=== PATIENT | male | born 1960 | race Caucasian/White ===

== ENCOUNTER 2021-05-16 14:06 | Outpatient (CLI) | payer MEDICAID, SELFPAY ==
--- NOTE | 2021-05-16 14:14 | XR_ITS ---
WS: [id number] LEFT ANKLE: 3 VIEW(S) TECHNIQUE: AP, oblique(s) and lateral. HISTORY: ANKLE JOINT PAIN, LEFT COMPARISON: None available. Normal anatomic alignment with no fracture or dislocation. No joint effusion or widening of the ankle mortise. Very minimal narrowing of the joint space. Moderate amount of soft tissue edema laterally. Moderate peripheral arterial calcification. XR/XR ankle LT min 3V* [id number] IMPRESSION: 1. Moderate soft tissue edema laterally. No fracture identified. 2. Peripheral arterial calcification.
== END 2021-05-16 14:07 | disposition home or self-care (01) ==
PROVIDERS: PCP Nurse Practitioner Family; Visit Provider Nurse Practitioner Family
DX: M25.572 Pain in left ankle and joints of left foot (principal); R60.0 Localized edema
CPT/HCPCS: 73610

== ENCOUNTER 2021-12-11 15:38 | Outpatient (CLI) | payer MEDICAID, SELFPAY ==
--- NOTE | 2021-12-11 15:45 | XR_ITS ---
WS: [id number] XR ankle RT min 3V* [id number] REASON FOR EXAM: PAIN RT ANKLE JOINT FINDINGS: No fracture or focal bone lesion. Mild narrowing of the ankle mortise. Ankle mortise of the right ankle appears similar to the mortise of the left ankle. No soft tissue abnormality. XR/XR ankle RT min 3V* [id number] IMPRESSION: No acute abnormality.
== END 2021-12-11 15:39 | disposition home or self-care (01) ==
LOC: RAD 15:42
PROVIDERS: PCP Nurse Practitioner Family; Visit Provider Family Medicine
DX: M25.571 Pain in right ankle and joints of right foot (principal)
CPT/HCPCS: 73610

== ENCOUNTER 2022-03-24 13:50 | Outpatient (CLI) | payer MEDICAID, SELFPAY ==
[2022-03-24 15:29] LABS: Basophils # 0.1 10^3/uL (0.0-0.1); Basophils % 1.2 %; Eosinophils # 0.1 10^3/uL (0.0-0.8); Eosinophils % 2.3 %; Hematocrit 43.4 % (42.0-52.0); Hemoglobin 14.7 g/dL (11.7-16.6); Lymphocytes # 0.6 10^3/uL (0.8-4.8); Lymphocytes % 12.4 %; Mean Corpuscular HGB Conc 33.9 g/dL (30.0-36.0); Mean Corpuscular Hemoglobin 31.1 pg (28.0-34.0); Mean Corpuscular Volume 91.8 fl (80-94); Mean Platelet Volume 10.3 fL (7.4-10.4); Monocytes # 0.7 10^3/uL (0.2-0.9); Neutrophils # 3.66 10^3/uL (1.8-7.7); Neutrophils % 70.7 %; Nucleated Red Blood Cells % 0 %; Platelet Count 104 10^3/cmm (130-400); Red Blood Count 4.73 10^6/uL (4.1-5.3); Red Cell Distribution Width 13.2 % (12.1-15.1); White Blood Count 5.2 10^3/uL (4.0-10.0)
[2022-03-24 15:32] LABS: Erythrocyte Sedimentation Rate 1 mm/hr (0-10)
[2022-03-24 15:34] LABS: LAB Peripheral Smear Sent for Review
[2022-03-24 16:01] LABS: Alanine Aminotransferase 19 U/L (0-41); Albumin Level 4.2 g/dL (3.5-5.2); Alkaline Phosphatase 112 IU/L (40-130); Anion Gap 13.6 (5-19); Aspartate Amino Transferase 26 U/L (0-40); Blood Urea Nitrogen 9 mg/dL (8-23); Calcium 8.7 mg/dL (8.5-10.5); Carbon Dioxide 27 mmol/L (22-29); Chloride 102 mmol/L (98-107); Glucose 93 mg/dL (65-115); Lactate Dehydrogenase 177 U/L (135-225); Osmolality Calculated 286 mOsm/kg (285-295); Potassium 3.6 mmol/L (3.5-5.1); Sodium 139 mmol/L (136-145); Total Bilirubin 0.5 mg/dL (0.15-1.2); Total Protein 7.2 g/dL (6.6-8.7)
[2022-03-24 16:12] LABS: Vitamin B12 513 pg/mL (232-1245)
--- NOTE | 2022-03-24 18:55 | ONC CON_ITS ---
Dr. Arguello New Patient Note Patient: Trino Maddox Unit #: [id number]: 1960 Dicatated By: Ej Arguello M.D.Date of Visit: Mar 24, 2022 Onc MED New Patient/Consult Referring Physician: Lamin Knott N.P. Chief Complaint: Thrombocytopenia. History of Present Illness: This is a 61 year-old man with mild thrombocytopenia and leukopenia. I had seen him initially in May 2016 in regard to a low platelet count. His evaluation included CBC showing hemoglobin 13.7 g with hematocrit 41%. The red cell indices were normal. The white blood cell count was 5000. The platelet count was just borderline low at 140,000. The serum iron was low at 58 mcg/dL with transferrin saturation 16%. Ferritin was normal at 235 ng/mL. B12 was low normal range at 295 pg/mL, and the LDH was normal at 172 U/L. TSH was slightly elevated at 5.490 mIU/mL. Given those findings, I had just recommended observation/expectant management. As of his follow-up visit in June 2017 his blood counts and clinical status had remained stable, and at that point I had recommended that he just continue his regular follow-up with Roh[facility] Gresh[facility]. His other medical illnesses include hypertension, hyperlipidemia, and coronary artery disease. He has had previous myocardial infarction, and he has undergone angioplasty/stent placement on 2 occasions. He has a history of atrial fibrillation. He also has COPD, degenerative arthritis/degenerative disease of the spine and peripheral neuropathy. He had previously smoked for 10 years, up to 3-4 packs of cigarettes daily, but he quit smoking around 1979. He had heavy alcohol use in the past, for a period of about for 5 years. He quit drinking about 1989. INTERIM HISTORY: He had follow-up laboratory studies with Rohith Gresham on 01/13/2022. His CBC at that time showed normal hemoglobin at 13.6 g with hematocrit 39.7%. The red cell indices were normal. The white blood cell count was slightly low at 3900 and the platelet count was also mildly decreased at 103,000. The the white blood cell differential included 63% neutrophils, 19% lymphocytes, 15% monocytes, 2% eosinophils, and 1% basophils. Comprehensive metabolic profile showed borderline renal function with BUN 9 and creatinine 1.36 mg/dL. The bilirubin and liver enzymes were normal. TSH was normal 2.480 ???IU/mL. A repeat CBC on 02/13/2022 showed similar findings with hemoglobin 15.1 g, white blood cell count 3500, and platelet count 101,000. He is seen now for a followup visit. He complains that he feels tired a lot, but he is able to do some light work. ECOG score is 1. His appetite has been okay. He thinks his weight has recently been down a little. He has not had fever. He does have some sweating at night, but that is chronic. He has nonproductive cough. He is short of breath if he overdoes it. He occasionally has chest pain. He has no GI or complaints. He says he has a lot of back problems. He also reports having pain in his right foot, in his knees, and in his hands. He does not complain of headache. He has occasional lightheadedness. He has had some numbness/tingling in his hands and feet. He reports having easy bruising. He has had no other bleeding manifestations. Past Medical History: His medical history consists of chronic obstructive pulmonary disease, coronary artery disease, degenerative arthritis, history of atrial fibrillation, hyperlipidemia, hypertension, and peripheral neuropathy. Past Surgical History: His surgical/procedural history includes coronary angioplasty/stent placement on 2 occasions, most recently in 2016. Medications: Aspirin 1 Tablet (of 81 mg) Oral daily, Fenofibrate 1 Capsule (of 134 mg) Oral daily, Gabapentin 1 Tablet (of 100 mg) Capsule Oral t.i.d. PRN, Isosorbide Mononitrate ER 1 Tablet (of 60 mg) Tablet SR 24 HR Oral daily, Levothyroxine Sodium 1 Tablet (of 50 mcg) Oral daily, Lisinopril 1 Tablet (of 40 mg) Oral daily, Metoprolol Tartrate 1 (25 mg) Tablet Oral b.i.d., Naproxen 1 Tablet (of 500 mg) Tablet, enteric coated Oral b.i.d., Nitroglycerin Tablet, sublingual Sublingual PRN, Zonisamide 4 Capsule (of 100 mg) Oral daily Allergies: No Known Allergies. Social History: Mr. Maddox is and he is a disabled. He has a history of smoking 3-4 packs of cigarettes daily for a period of 10 years. He quit smoking [id number]. He does chew a can of smokeless tobacco every 2-3 weeks. He has had heavy alcohol use in the past for a period of 4 or 5 years. He quit around 1989. He has since then had just very occasional alcohol use. Family History: His father reportedly of old age. His mother apparently after heart and lung problems. He has some half-siblings, but he doesn't know much about them. He has no full siblings. Review Of Symptoms: Constitutional - He complains that he is tired a lot. He is able to do light work. His appetite has been okay. He thinks his weight may have gone down a little bit recently. He has not had fever. He does have some sweating at night, but that is chronic. ECOG score is 1, Eyes - No change in vision, ENMT - He has hearing loss. No sinus congestion/drainage. No mouth sores. No sore throat or difficulty swallowing, Hematologic/Lymphatic - He has easy bruising, Respiratory - He has shortness of breath if he overdoes it. He has nonproductive cough. No pleuritic pain or hemoptysis, Cardiovascular - He occasionally has chest pain. No palpitations, Gastrointestinal - No nausea or vomiting. No heartburn or acid reflux. No diarrhea or constipation. No blood in the stool or black stools, Genitourinary (M) - No dysuria or hematuria. No urinary frequency. No urgency or incontinence, Musculoskeletal - He has chronic back pain. He also reports having pain in his right foot, and his knees, and in his hands, Integumentary - He sometimes has itching in his hands, Neurologic - No headache. He has occasional lightheadedness. He has had numbness/tingling in his hands and feet. No other focal neurologic symptoms, Psychiatric - No anxiety or depression. He has trouble going to sleep. Vital Signs: Performed on Mar 24, 2022 15:28: 7, 6, 30.38 (HIGH), 1.95 sq.m, 66.00 in, 99 %, 80 /min, 16 /min, 127/83 mm(hg), 98.2 F (LOW), and 188.2 lbs (LOW). Physical Examination: Constitutional - He has limited mobility. He does not appear acutely ill, Eyes - Sclerae nonicteric. Conjunctivae clear, ENMT - No lesions noted in the oral cavity, Neck - No mass or thyromegaly, Hematologic/Lymphatic - No cervical, clavicular, or axillary adenopathy, Respiratory - Lungs sound clear with good air movement bilaterally, Cardiovascular - Heart rhythm is slightly irregular. There is no murmur, gallop, or rub noted, Abdomen - Soft and non-tender. Liver and spleen are not enlarged. There is no abdominal mass or ascites noted and there is no inguinal adenopathy, Back/Spine - No spine or CVA tenderness noted, Extremities - No edema. Dorsalis pedis pulses are palpable bilaterally. There are a few scattered purpuric lesions, Integumentary - There is some mild eczematous appearing skin eruption in the palms. There are no suspicious skin lesions noted, Neurologic - No focal neurologic deficits noted. Problem List: 1. Mild thrombocytopenia and leukopenia. 2. Hypertension. 3. Hyperlipidemia. 4. Coronary artery disease with previous myocardial infarction. 5. Atrial fibrillation. 6. COPD. 7. Degenerative arthritis/degenerative disease of the spine. 8. History of peripheral neuropathy. Problems Addressed with this Encounter and Plan: 1. Patient with mild thrombocytopenia and leukopenia. Etiology is uncertain. In the absence of any evidence of liver disease/hypersplenism, the main concern would be the possibility of a myelodysplastic syndrome. However, in reviewing his records, the onset dates back to around 2013, so that he does appear to be showing a very benign clinical course. At this point I do want to repeat his CBC along with comprehensive metabolic profile, LDH level, B12 level, sed rate, and JENNIFER screen, and I also will review the blood smear. Unless there is a significant change, I will just plan to continue expectant management. Signed By: Ej Arguello M.D. <<Signature on File>>
[2022-03-25 17:43] LABS: Anti-Nuclear Antibody Screen NEGATIVE (NEGATIVE)
== END 2022-03-24 13:51 | disposition home or self-care (01) ==
LOC: ONCMED 13:55
PROVIDERS: PCP Nurse Practitioner Family; Visit Provider Internal Medicine Medical Oncology
DX: D69.6 Thrombocytopenia, unspecified (principal); D72.819 Decreased white blood cell count, unspecified; I10 Essential (primary) hypertension; E78.5 Hyperlipidemia, unspecified; I25.10 Atherosclerotic heart disease of native coronary artery without angina pectoris; I25.2 Old myocardial infarction; I48.91 Unspecified atrial fibrillation; Z86.69 Personal history of other diseases of the nervous system and sense organs; Z79.899 Other long term (current) drug therapy
CPT/HCPCS: 36415; 80053; 82607; 83615; 85025; 85651; 86038; 99204

== ENCOUNTER 2022-11-26 11:31 | Outpatient (CLI) | payer MEDICAID, SELFPAY ==
--- NOTE | 2022-11-26 11:41 | XR_ITS ---
WS: [id number] Lumbar spine, 5 views including both obliques, 11/26/2022 Clinical Data: LUMBAGO Comparison: None. Findings: No compression fractures or subluxation is seen. There is disc narrowing at L1-L2, L3-L4, L4-L5 and L 5-S1. There is anterior osteophyte formation of the lower thoracic and all the lumbar vertebral lawson s. The oblique films show no spondylolysis. The transverse processes and SI joints are normal. There is a dextroscoliosis of the lumbar spine XR/XR lumbar spine min 4V [id number] Impression: 1. Multilevel degenerative disc narrowing and osteophyte formation. 2. Dextroscoliosis. 3. No spondylolysis on the oblique films.
== END 2022-11-26 11:32 | disposition home or self-care (01) ==
PROVIDERS: PCP Nurse Practitioner Family; Visit Provider Nurse Practitioner Family
DX: M54.50 Low back pain, unspecified (principal); M25.78 Osteophyte, vertebrae; M41.86 Other forms of scoliosis, lumbar region
CPT/HCPCS: 72110

== ENCOUNTER → 2023-03-08 12:58 | Outpatient (BNVA) | payer MEDICAID, SELFPAY | PROVIDERS: PCP Nurse Practitioner Family; Visit Provider Internal Medicine | DX: I25.10 Atherosclerotic heart disease of native coronary artery without angina pectoris (principal); E78.5 Hyperlipidemia, unspecified; J44.9 Chronic obstructive pulmonary disease, unspecified; I10 Essential (primary) hypertension; F17.200 Nicotine dependence, unspecified, uncomplicated; I25.2 Old myocardial infarction; Z79.82 Long term (current) use of aspirin | CPT/HCPCS: 99213 ==

== ENCOUNTER 2023-04-13 14:24 | Outpatient (CLI) | payer MEDICAID, SELFPAY ==
--- NOTE | 2023-04-13 14:48 | XRR_ITS ---
PROCEDURE INFORMATION: Exam: XR Left Elbow Exam date and time: 04/13/2023 2:56 PM Age: 62 years old Clinical indication: Injury or trauma; Other: Spider bite; Wound; Elbow; Left; Additional info: Left arm cellulitis TECHNIQUE: Imaging protocol: Radiologic exam of the left elbow. Views: 3 or more views. COMPARISON: No relevant prior studies available. FINDINGS: Bones/joints: Normal. Soft tissues: Normal. XR/XR elbow LT min 3V* [id number] IMPRESSION: No acute findings.
== END 2023-04-13 14:25 | disposition home or self-care (01) ==
LOC: LAB 14:31
PROVIDERS: PCP Nurse Practitioner Family; Visit Provider Nurse Practitioner Family
DX: L03.114 Cellulitis of left upper limb (principal)
CPT/HCPCS: 73080

== ENCOUNTER → 2024-01-18 13:56 | Outpatient (BNVA) | payer MEDICAID, SELFPAY | PROVIDERS: PCP Nurse Practitioner Family; Visit Provider Internal Medicine | DX: I25.10 Atherosclerotic heart disease of native coronary artery without angina pectoris (principal); E78.5 Hyperlipidemia, unspecified; J44.9 Chronic obstructive pulmonary disease, unspecified; I10 Essential (primary) hypertension; F17.200 Nicotine dependence, unspecified, uncomplicated | CPT/HCPCS: 99214 ==

== ENCOUNTER 2024-01-26 10:49 | Outpatient (CLI) | payer MEDICAID, SELFPAY ==
--- NOTE | 2024-01-26 10:00 | USCV_ITS ---
Trino Maddox Age: 63 Gender: M : 1960 Exam Date: 01/26/2024 11:02 Ordering Phys: Maged Sanchez M.D ([email or web address]) Technologist: ANTWON Exam Location: [facility] [place] Indication: SHORTNESS OF BREATH BP: 110 / 60 HR: 80 Rhythm: Sinus Technical Quality: Adequate MEASUREMENTS (Male / Female) Normal Values 2D ECHO LV Diastolic Diameter PLAX 5.1 cm 4.2 - 5.9 / 3.9 - 5.3 cm IVS Diastolic Thickness 1.2 cm 0.6 - 1.0 / 0.6 - 0.9 cm IVS Systolic Thickness 1.5 cm LVPW Diastolic Thickness 1.7 cm 0.6 - 1.0 / 0.6 - 0.9 cm LVPW Systolic Thickness 2.3 cm LVOT Diameter 2.0 cm LV Ejection Fraction 2D Teich 53.2 % LV Ejection Fraction MOD 2C 48.8 % LV Ejection Fraction 2C AL 0.0 % LA Diameter 4.3 cm RA Systolic Volume 4C AL 26.6 ml RA Systolic Volume 4C MOD 26.4 ml Aorta at Sinotubular Diameter 2.7 cm M-MODE LA Ao Ratio MM 1.3 AV Cusp Separation MM 1.3 cm DOPPLER AV Peak Velocity 157.0 cm/s LVOT Peak Velocity 110.0 cm/s AV Area Cont Eq vti 2.3 cm squared AV Area Cont Eq pk 2.2 cm squared MV Peak Velocity 450.0 cm/s MV Area PHT 4.5 cm squared Mitral E to A Ratio 107.0 TR Peak Velocity 189.0 cm/s TR Peak Gradient 14.3 mmHg TR Mean Velocity 150.0 cm/s TR Mean Gradient 9.6 mmHg TR Velocity Time Integral 53.4 cm TV Peak E Velocity 55.0 cm/s Right Atrial Pressure 3.0 mmHg Pulmonary Artery Systolic Pressu 17.3 mmHg PV Peak Velocity 108.0 cm/s RV Ejection Time 0.3 s FINDINGS Left Ventricle Left ventricle is normal in size. LV systolic function is mildly reduced with EF of 40-45%. Mild global hypokinesis seen. Right Ventricle Normal in size and function Right Atrium Normal in size Left Atrium Dilated Mitral Valve Structurally normal mitral valve. Mild to moderate mitral regurgitation. Aortic Valve Structurally normal aortic valve. No significant stenosis or regurgitation. Tricuspid Valve Mild tricuspid regurgitation. Insufficient TR jet to calculate RVSP. Pulmonic Valve Not well visualized Pericardium Normal Aorta Normal in size IVC Appears to be normal CONCLUSIONS LV systolic function is mildly reduced with EF of 40-45%. Mild global hypokinesis seen Left atrial dilation Mild to moderate mitral regurgitation Mild tricuspid regurgitation Compared to prior echocardiogram from 2017, LV systolic function has decreased further and EF is 40-45% Maged Sanchez MD (Electronically Signed) Final Date: 01 February 2024 12:27 S
== END 2024-01-26 10:50 | disposition home or self-care (01) ==
LOC: RAD 10:50
PROVIDERS: PCP Nurse Practitioner Family; Visit Provider Internal Medicine
DX: I08.1 Rheumatic disorders of both mitral and tricuspid valves (principal); R06.02 Shortness of breath
CPT/HCPCS: 93306

== ENCOUNTER 2024-03-07 07:40 | Inpatient (IN) | payer MEDICAID, SELFPAY ==
[2024-03-07] MEDS: diphenhydrAMINE 50 mg Capsule PO (06:25)
[2024-03-07] MEDS: aspirin 325 mg Tablet PO (06:25)
[2024-03-07 06:37] LABS: Basophils % 0.7 %; Eosinophils # 0.1 10^3/uL (0.0-0.8); Eosinophils % 2.9 %; Hematocrit 31.5 % (37-53); Lymphocytes # 0.4 10^3/uL (0.8-4.8); Lymphocytes % 15.9 %; Mean Corpuscular Hemoglobin 31.2 pg (27-33); Mean Corpuscular Volume 94.6 fl (82-101); Mean Platelet Volume 10.4 fL (7.4-10.4); Monocytes # 0.3 10^3/uL (0.2-0.9); Monocytes % 11.9 %; Neutrophils % 68.6 %; Nucleated Red Blood Cells % 0 %; Platelet Count 86 10^3/cmm (157-399); Red Blood Count 3.33 10^6/uL (3.85-5.65); Red Cell Distribution Width 13.5 % (12.1-15.1); White Blood Count 2.77 10^3/uL (3.29-11.43)
[2024-03-07 06:53] VITALS: BP 149/98; PULSE 105; RESP 16; TEMP 37.1; O2SAT 100; BMI 29.4
[2024-03-07 06:54] LABS: Anion Gap 12.5 (5-19); Blood Urea Nitrogen 10 mg/dL (8-23); Calcium 8.6 mg/dL (8.5-10.5); Carbon Dioxide 26 mmol/L (22-29); Chloride 104 mmol/L (98-107); Glomerular Filtration Rate 67.6 mL/min (90-130); Glucose 87 mg/dL (65-115); Osmolality Calculated 286 mOsm/kg (285-295); Potassium 3.5 mmol/L (3.5-5.1); Sodium 139 mmol/L (136-145)
[2024-03-07] MEDS: FUROsemide 10 mg/mL SDV 10mL 60 MG IVP (07:47)
--- NOTE | 2024-03-07 08:10 | SUR.PREOP ---
Transfer to CSU Patient to be a direst admit for diuresis. Will postpone R & LHC. Report called to REJI Haley. Patient then transferred via wheelchair to room 101 at 0800. See MAR for Lasix administration. Brother at bedside.
--- NOTE | 2024-03-07 08:17 | XR_ITS ---
WS: [id number] PORTABLE CHEST HISTORY: Congestive heart failure COMPARISON: 09/15/2019 Poor inspiratory effort. No pneumonia. Normal vasculature. No pleural effusion or pneumothorax. Cardiac size: Normal. Mediastinum/Aorta: Normal mediastinum. No osseous abnormality seen. IMPRESSION: Limited evaluation of the lungs due to poor inspiration and overlying lead wires. No abnormality iden tified.
--- NOTE | 2024-03-07 08:23 | ECG_ITS ---
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 Measurements Intervals [place] Rate: 90 P: 0 HI: 0 QRS: -30 QRSD: 114 T: 139 QT: 358 QTc: 439 Interpretive Statements ATRIAL FIBRILLATION POSSIBLE ANTERIOR MYOCARDIAL INFARCTION , PROBABLY OLD [30 ms Q WAVE IN V3/V4, OR R < 0.2 mV IN V4] INFERIOR MYOCARDIAL INFARCTION , PROBABLY OLD [40+ ms Q WAVE AND/OR ST/T ABNORMALITY IN II/aVF] Compared to ECG 09/15/2019 07:55:33 Sinus bradycardia no longer present Myocardial infarct finding still present Electronically Signed On 03-07-2024 21:26:27 CDT by Alejandro Gibson M.D. [id number]
--- NOTE | 2024-03-07 08:26 | P.HP_ITS ---
Providers/Chief Complaint 2 Admitting Physician: Maged Sanchez M.D Primary Care Provider: Ira Noyola DO Chief Complaint: I50.1 History of Present Illness Trino Maddox is a 63 year old male with past medical history of coronary artery disease, recent decrease in LV systolic function presented to hospital for outpatient right and left heart cath. However on exam before the procedure, he was found to be volume overloaded. Has abdominal distention and significant lower extremity edema. He is also having worsening dyspnea on exertion and resting shortness of breath. Occasional chest pressure. After discussion with patient, we decided to admit the patient for IV diuresis. Review of Systems 2 Const: Denies: fatigue Card: Reports: chest pain, swelling of feet/ankles, dyspnea on exertion and orthopnea; Denies: palpitations, irregular heart rhythm, edema, lightheadedness, syncope, pre-syncope or leg pain with exertion Resp: Reports: dyspnea and non-productive cough; Denies: productive cough Musc: Reports: neck pain and back pain (lower) Neuro: Reports: headache(s); Denies: dizziness Psych: Denies: anxiety, depression, suicidal ideation or homicidal ideation Gerald/Lymph: Reports: easy bruising and easy bleeding Medications/Allergies Home Medications Medication Instructions Recorded Confirmed Last Taken Type aspirin 81 mg tablet,delayed 81 mg PO DAILY 01/22/20 03/07/24 03/06/24 09:00 History release (Aspir-) fenofibrate micronized 134 mg 134 mg PO DAILY 01/22/20 03/07/24 03/06/24 09:00 History capsule gabapentin 100 mg capsule 100 mg PO TID 01/22/20 03/07/24 Unknown History isosorbide mononitrate 60 mg 60 mg PO DAILY 01/22/20 03/07/24 03/06/24 09:00 History tablet,extended release 24 hr levothyroxine 25 mcg capsule 25 mcg PO DAILY 01/22/20 03/07/24 03/06/24 09:00 History lisinopril 40 mg tablet 40 mg PO DAILY 01/22/20 03/07/24 03/06/24 09:00 History simvastatin 40 mg tablet 40 mg PO DAILY 01/22/20 03/07/24 03/06/24 21:00 History zonisamide 100 mg capsule 400 mg PO DAILY 01/22/20 03/07/24 03/06/24 09:00 History nitroglycerin 0.4 mg sublingual 0.4 mg sublingual Q5M PRN chest 07/24/20 03/07/24 Unknown Rx tablet (Nitrostat) pain #60 tabs metoprolol tartrate 25 mg tablet 25 mg PO DAILY 03/08/23 03/07/24 03/06/24 09:00 History furosemide 20 mg tablet (Lasix) 20 mg PO DAILY 01/19/24 03/07/24 03/06/24 09:00 History potassium chloride 10 mEq 10 meq PO DAILY 01/19/24 03/07/24 03/06/24 09:00 History tablet,extended release Allergies Allergy/AdvReac Type Severity Reaction Status Date / Time No Known Allergies Allergy Verified 01/31/24 12:14 PFSH Acute 2 PFSH: Medical History (Updated 03/08/24 @ 06:37 by Maged Sanchez M.D) HTN (hypertension) ASHD (arteriosclerotic heart disease) Myocardial infarction Dyslipidemia COPD (chronic obstructive pulmonary disease) Surgical History S/P angioplasty with stent Family History Mother Hypertension Other CAD (coronary artery disease) Social History Smoking and tobacco/nicotine status: current some day tobacco/nicotine user Alcohol intake: current Alcohol intake frequency: holidays/special occasions only Alcohol type: beer Household members: significant other Marital status: Life Partner service: No Current occupational status: disabled Vitals/I&O/Wt Last Vital Signs Temp 98.7 F 03/07/24 06:53 Pulse 105 H 03/07/24 06:53 Resp 16 03/07/24 06:53 BP 149/98 03/07/24 06:53 O2 Del Method Room Air 03/07/24 06:53 Weight last 48 hrs Weight 177 lb Physical Exam 2 Narrative: GENERAL: Patient is alert, awake and oriented x3. [] NECK: No jugular vein distension. [] HEENT: No cyanosis. No icterus. No pallor. [] HEART: Regular S1 and S2. No murmur, rub or gallop. [] LUNGS: Clear to auscultate bilaterally. [] CENTRAL NERVOUS SYSTEM: Grossly nonfocal. [] EXTREMITIES: Lower extremities with 1+ edema bilaterally. Data 03/08/24 03:09 03/08/24 03:09 A&P Assessment and plan (1) Acute congestive heart failure: (2) Dyslipidemia: (3) ASHD (arteriosclerotic heart disease): (4) HTN (hypertension): Qualifiers: Hypertension type: primary hypertension Qualified Code(s): I10 - Essential (primary) hypertension (5) COPD (chronic obstructive pulmonary disease): Plan Patient is acute CHF exacerbation. We will aggressively diurese with 80 IV Lasix 3 times daily and metolazone 5mg daily. Close I and Os. Monitor renal function Home antihypertensive medications. Continue aspirin Ordering chest X ray NT pro BNP elevated at 1938 Plan for right and left heart cath with possible PCI in 1-2 days based on response to diuretic therapy. Attestations 2 Medical Necessity Statement*: Care expected to cross 2 midnights. Patient admitted for acute exacerbation of congestive heart failure. Will IV diuresis and then right and left heart cath once volume status improves. Coding Level of Care Code Acute Code for [facility] Diagnoses Acute congestive heart failure I50.9 Dyslipidemia E78.5 ASHD (arteriosclerotic heart disease) I25.10 Primary hypertension I10 Hypertension type: primary hypertension COPD (chronic obstructive pulmonary disease) J44.9
[2024-03-07] MEDS: potassium chloride ER 20 mEq Tablet 40 MEQ PO ×2 (08:45→16:37)
[2024-03-07] MEDS: metOLazone 5 MG Tablet PO (08:45)
[2024-03-07 08:51] LABS: NT Pro B Type Natriuretic Pept 1938 pg/mL (0-125)
[2024-03-07] MEDS: metoprolol tartrate 25 mg Tablet PO ×2 (08:54→20:45)
[2024-03-07] MEDS: lisinopril 20 mg Tablet 40 MG PO (08:55)
[2024-03-07] MEDS: enoxaparin 40 mg/0.4 mL Syringe SUBCUT (08:56)
[2024-03-07 09:01] VITALS: BP 136/91; PULSE 108; RESP 22; TEMP 36.8
[2024-03-07 10:27] LABS: Alanine Aminotransferase 12 U/L (0-41); Alkaline Phosphatase 83 U/L (40-130); Anion Gap 12.6 (5-19); Aspartate Amino Transferase 14 U/L (0-40); Blood Urea Nitrogen 11 mg/dL (8-23); Calcium 8.6 mg/dL (8.5-10.5); Carbon Dioxide 24 mmol/L (22-29); Chloride 108 mmol/L (98-107); Creatinine Clr Calc Pharmacy 67.0973; Glomerular Filtration Rate 67.6 mL/min (90-130); Glucose 108 mg/dL (65-115); Osmolality Calculated 292 mOsm/kg (285-295); Potassium 3.6 mmol/L (3.5-5.1); Sodium 141 mmol/L (136-145); Total Bilirubin 1.1 mg/dL (0.15-1.2)
[2024-03-07 13:07] VITALS: BP 93/71; PULSE 82; RESP 10; TEMP 36.6
[2024-03-07] MEDS: FUROsemide 10 mg/mL SDV 10mL 80 MG IVP ×2 (15:58→20:44)
[2024-03-07 16:00] VITALS: BP 108/73; PULSE 72; RESP 15; TEMP 36.7
[2024-03-07] MEDS: atorvastatin 40 mg Tablet PO (20:44)
[2024-03-07 21:26] VITALS: BP 96/68; PULSE 87; RESP 24; TEMP 36.8; O2SAT 95
[2024-03-08] VITALS (7 sets, daily range): BP systolic 91–151; BP diastolic 59–85; PULSE 59–101; RESP 15–24; TEMP 36.4–37.5; O2SAT 93–96; BMI 30.1
[2024-03-08 03:52] LABS: Basophils % 1.4 %; Eosinophils # 0.1 10^3/uL (0.0-0.8); Eosinophils % 4.1 %; Hematocrit 28.7 % (37-53); Lymphocytes # 0.3 10^3/uL (0.8-4.8); Mean Corpuscular HGB Conc 33.4 g/dL (30-55); Mean Corpuscular Hemoglobin 31.4 pg (27-33); Mean Corpuscular Volume 93.8 fl (82-101); Mean Platelet Volume 10.7 fL (7.4-10.4); Monocytes # 0.3 10^3/uL (0.2-0.9); Monocytes % 16.9 %; Neutrophils % 54.6 %; Nucleated Red Blood Cells % 0 %; Platelet Count 73 10^3/cmm (157-399); Red Blood Count 3.06 10^6/uL (3.85-5.65); Red Cell Distribution Width 13.3 % (12.1-15.1); White Blood Count 1.48 10^3/uL (3.29-11.43)
[2024-03-08 04:13] LABS: Alanine Aminotransferase 11 U/L (0-41); Albumin Level 2.8 g/dL (3.5-5.2); Alkaline Phosphatase 78 U/L (40-130); Anion Gap 11.8 (5-19); Aspartate Amino Transferase 13 U/L (0-40); Blood Urea Nitrogen 14 mg/dL (8-23); Calcium 8.8 mg/dL (8.5-10.5); Carbon Dioxide 29 mmol/L (22-29); Chloride 104 mmol/L (98-107); Creatinine Clr Calc Pharmacy 57.3716; Globulin 2.3 g/dL (1.3-4.6); Glomerular Filtration Rate 55.8 mL/min (90-130); Glucose 72 mg/dL (65-115); Osmolality Calculated 291 mOsm/kg (285-295); Potassium 3.8 mmol/L (3.5-5.1); Sodium 141 mmol/L (136-145); Total Protein 5.1 g/dL (6.6-8.7)
[2024-03-08 04:21] LABS: Slide Review Slide Review Perform
[2024-03-08 04:22] LABS: Neutrophils # 0.81 10^3/uL (1.8-7.7)
--- NOTE | 2024-03-08 06:41 | P.PN_ITS ---
Subjective 2 Subjective: Patient overall doing well. Has diuresed very well. Creatinine went up. In atrial fibrillation which is known diagnosis. Vitals/I&O/Wt Last Vital Signs Temp 97.5 F L 03/08/24 00:19 Pulse 85 03/08/24 04:47 Resp 20 H 03/08/24 04:47 BP 91/59 03/08/24 04:47 Pulse Ox 93 03/08/24 04:47 O2 Del Method Room Air 03/08/24 00:19 03/07/24 03/07/24 03/08/24 14:59 22:59 06:59 Intake Total 478 / 478 240 / 718 Output Total 2190 / 2190 2840 / 5030 1200 / 6230 Balance -1712 / -1712 -2840 / -4552 -960 / -5512 Weight last 48 hrs Weight 181 lb Weight 181 lb Weight 177 lb Physical Exam 2 Narrative: GENERAL: Patient is alert, awake and oriented x3. [] NECK: No jugular vein distension. [] HEENT: No cyanosis. No icterus. No pallor. [] HEART: Regular S1 and S2. No murmur, rub or gallop. [] LUNGS: Clear to auscultate bilaterally. [] CENTRAL NERVOUS SYSTEM: Grossly nonfocal. [] EXTREMITIES: Lower extremities with 1+ edema bilaterally. Data 03/09/24 04:46 03/09/24 04:46 A&P Assessment and plan (1) Acute congestive heart failure: (2) Dyslipidemia: (3) ASHD (arteriosclerotic heart disease): (4) HTN (hypertension): Qualifiers: Hypertension type: primary hypertension Qualified Code(s): I10 - Essential (primary) hypertension (5) COPD (chronic obstructive pulmonary disease): Plan Patient is diuresing well. Creatinine went up. Will down titrate the Lasix to 40 twice daily. Continue metolazone. Close I&O's. Monitor renal function. If renal function is stable by tomorrow, we will proceed with coronary angiogram and right heart cath. He has known A-fib. Currently rate controlled. Was not on rate limiting medicines. He has pancytopenia. Will need outpatient workup for that Attestations 2 Medical Necessity Statement*: Care expected to cross 2 midnights. Patient has CHF exacerbation. Currently getting diuresed. Plan for coronary angiogram and right heart cath possibly tomorrow. Coding Level of Care Code Acute Code for [facility] Diagnoses Acute congestive heart failure I50.9 Dyslipidemia E78.5 ASHD (arteriosclerotic heart disease) I25.10 Primary hypertension I10 Hypertension type: primary hypertension COPD (chronic obstructive pulmonary disease) J44.9
[2024-03-08] MEDS: lisinopril 20 mg Tablet 40 MG PO (08:52)
[2024-03-08] MEDS: potassium chloride ER 20 mEq Tablet 40 MEQ PO (08:52)
[2024-03-08] MEDS: FUROsemide 10 mg/mL SDV 4mL 40 MG IVP (08:52)
[2024-03-08] MEDS: metOLazone 5 MG Tablet PO (08:52)
[2024-03-08] MEDS: aspirin 81 mg EC Tablet PO (08:53)
[2024-03-08] MEDS: metoprolol tartrate 25 mg Tablet PO (08:53)
[2024-03-08 17:50] LABS: Eosinophils # 0.1 10^3/uL (0.0-0.8); Eosinophils % 2.6 %; Hematocrit 30.4 % (37-53); Lymphocytes # 0.3 10^3/uL (0.8-4.8); Lymphocytes % 15.8 %; Mean Corpuscular HGB Conc 33.2 g/dL (30-55); Mean Corpuscular Hemoglobin 31.4 pg (27-33); Mean Corpuscular Volume 94.4 fl (82-101); Mean Platelet Volume 10.7 fL (7.4-10.4); Monocytes # 0.3 10^3/uL (0.2-0.9); Monocytes % 14.8 %; Neutrophils # 1.29 10^3/uL (1.8-7.7); Neutrophils % 65.8 %; Nucleated Red Blood Cells % 0 %; Platelet Count 77 10^3/cmm (157-399); Red Blood Count 3.22 10^6/uL (3.85-5.65); Red Cell Distribution Width 13.3 % (12.1-15.1); White Blood Count 1.96 10^3/uL (3.29-11.43)
[2024-03-08 18:08] LABS: Anion Gap 12.2 (5-19); Blood Urea Nitrogen 17 mg/dL (8-23); Carbon Dioxide 30 mmol/L (22-29); Chloride 104 mmol/L (98-107); Creatinine Clr Calc Pharmacy 51.3333; Glomerular Filtration Rate 51.2 mL/min (90-130); Glucose 107 mg/dL (65-115); Osmolality Calculated 296 mOsm/kg (285-295); Potassium 4.2 mmol/L (3.5-5.1); Sodium 142 mmol/L (136-145)
[2024-03-09] VITALS (9 sets, daily range): BP systolic 92–111; BP diastolic 54–77; PULSE 75–99; RESP 15–27; TEMP 36.5–37.1; O2SAT 91–99
[2024-03-09 05:01] LABS: Basophils % 1.2 %; Eosinophils % 2.4 %; Lymphocytes # 0.4 10^3/uL (0.8-4.8); Lymphocytes % 24.1 %; Mean Corpuscular HGB Conc 32.3 g/dL (30-55); Mean Corpuscular Hemoglobin 30.8 pg (27-33); Mean Corpuscular Volume 95.2 fl (82-101); Mean Platelet Volume 10.1 fL (7.4-10.4); Monocytes # 0.2 10^3/uL (0.2-0.9); Monocytes % 13.3 %; Nucleated Red Blood Cells % 0 %; Platelet Count 80 10^3/cmm (157-399); Red Blood Count 3.15 10^6/uL (3.85-5.65); Red Cell Distribution Width 13.2 % (12.1-15.1); White Blood Count 1.66 10^3/uL (3.29-11.43)
[2024-03-09 05:20] LABS: Alanine Aminotransferase 10 U/L (0-41); Albumin Level 2.9 g/dL (3.5-5.2); Alkaline Phosphatase 80 U/L (40-130); Anion Gap 11.9 (5-19); Aspartate Amino Transferase 12 U/L (0-40); Blood Urea Nitrogen 17 mg/dL (8-23); Calcium 8.8 mg/dL (8.5-10.5); Carbon Dioxide 30 mmol/L (22-29); Chloride 102 mmol/L (98-107); Creatinine Clr Calc Pharmacy 54.9237; Globulin 2.3 g/dL (1.3-4.6); Glomerular Filtration Rate 55.8 mL/min (90-130); Glucose 84 mg/dL (65-115); Osmolality Calculated 291 mOsm/kg (285-295); Potassium 3.9 mmol/L (3.5-5.1); Sodium 140 mmol/L (136-145); Total Protein 5.2 g/dL (6.6-8.7)
[2024-03-09 05:25] LABS: Neutrophils # 0.98 10^3/uL (1.8-7.7)
--- NOTE | 2024-03-09 06:23 | P.PN_ITS ---
Subjective 2 Subjective: Patient had coronary angiogram today that showed critical distal RCA stenosis, severe proximal RCA stenosis that underwent successful revascularization with 2 stents. Severe ISR of mid LAD stent was noted and underwent successful revascularization with balloon angioplasty. He is overall doing well. No chest pain now. Vitals/I&O/Wt Last Vital Signs Temp 97.7 F 03/09/24 04:00 Pulse 99 03/09/24 04:00 Resp 24 H 03/09/24 04:00 BP 95/66 03/09/24 04:00 Pulse Ox 99 03/09/24 04:00 O2 Del Method Room Air 03/09/24 04:00 03/08/24 03/08/24 03/09/24 14:59 22:59 06:59 Intake Total 466 / 466 720 / 1186 980 / 2166 Output Total 600 / 600 2100 / 2700 1200 / 3900 Balance -134 / -134 -1380 / -1514 -220 / -1734 Weight last 48 hrs Weight 164 lb 9.6 oz Weight 167 lb Weight 181 lb Weight 181 lb Weight 177 lb Physical Exam 2 Narrative: GENERAL: Patient is alert, awake and oriented x3. [] NECK: No jugular vein distension. [] HEENT: No cyanosis. No icterus. No pallor. [] HEART: Regular S1 and S2. No murmur, rub or gallop. [] LUNGS: Clear to auscultate bilaterally. [] CENTRAL NERVOUS SYSTEM: Grossly nonfocal. [] EXTREMITIES: Lower extremities with 1+ edema bilaterally. Data 03/10/24 04:35 03/10/24 04:35 A&P Assessment and plan (1) Acute congestive heart failure: (2) Dyslipidemia: (3) ASHD (arteriosclerotic heart disease): (4) HTN (hypertension): Qualifiers: Hypertension type: primary hypertension Qualified Code(s): I10 - Essential (primary) hypertension (5) COPD (chronic obstructive pulmonary disease): Plan Patient underwent successful revascularization of RCA with 2 stents. Had balloon angioplasty of mid LAD. Continue aspirin and Plavix. He has pancytopenia. Will need outpatient workup for that. He says he will follow-up with primary care physician. We will diurese him all further overnight. Possible discharge tomorrow. Attestations 2 Medical Necessity Statement*: Care expected to cross 2 midnights. Coding Level of Care Code Acute Code for [facility] Diagnoses Acute congestive heart failure I50.9 Dyslipidemia E78.5 ASHD (arteriosclerotic heart disease) I25.10 Primary hypertension I10 Hypertension type: primary hypertension COPD (chronic obstructive pulmonary disease) J44.9
--- NOTE | 2024-03-09 08:00 | XACV_ITS ---
Exam Room: [facility] Ht: 165 cm Wt: 80 kg BSA: 1.94 m2 Gender: Male : 1960 Any Known Allergies: No known allergies Exam Priority: Routine Procedure(s): Procedure Description: Diagnostic procedure Procedure Description: PCI procedure Procedure Description: Right Heart Catheterization Procedure Description: O2 saturation Procedure Description: Drug Eluting Coronary Stent Procedure Description: PTCA Procedure Description: Miscellaneous Procedure Description: ACT Procedure Description: Coronary Angiography Diagnostic Cath Status: Elective Diagnostic Findings * Left Main has no significant disease. * Circumflex has mild luminal irregularities. OM 1 is a small to medium sized vessel with significant 70% stenosis. * LAD is a medium sized artery. Mid Left Anterior Descending has prior stent with severe 90% instent restenosis, [place]: 3 flow. * Proximal Right Coronary Artery: significant 80% stenosis, [place]: 3 flow. * Distal Right Coronary Artery: critical 95% stenosis, [place]: 3 flow. * Coronary angiography shows right dominance. PCI Status: Elective PCI Indication: Other Interventional Findings * PROCEDURE DETAIL: We engaged RCA with JR4 guide catheter. 0.014 run-through guidewire was used to cross the stenosis and was put in distal vessel. We predilated the distal stenosis first with 2.5 x 12 mm semicompliant balloon.We then placed 2.5 x 15 mm resolute [place] drug-eluting stent in distal RCA. The stent balloon was used to predilate proximal RCA stenosis. This was followed by 3.0 x 18 mm resolute Kb drug-eluting stent placement in proximal RCA. At this time final angiogram was performed that showed excellent stent expansion, [place]-3 flow and no residual stenosis. Guidewire and guide catheter were removed. We then turned our attention to mid LAD in-stent restenosis. LAD was engaged with XB 3.5 guide catheter. 0.014 run-through guidewire was used to cross the mid LAD stent and was put in distal vessel. We dilated stent with 2.5 x 12 mm NC balloon. This opened up the stent well. No new stent was placed. Guidewire and guide catheter were removed. 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 * Proximal Right Coronary Artery: 80% stenosis treated with a 2.5X15 stent balloon inflation for balloon angioplasty, and MDT R KB 3.0X18 ERICK. 0% residual stenosis, [place]: 3 flow. * Mid Left Anterior Descendin% stenosis treated with a MDT NC EUPHORA RX [id number] BALLOON. 0% residual stenosis, [place]: 3 flow. * Distal Right Coronary Artery: 95% stenosis treated with a AB TREK 2.50X12 RX BALLOON, and MDT R KB 2.5X15 ERICK. 0% residual stenosis, [place]: 3 flow. Conclusions 1. Critical 2. distal RCA stenosis s/p successful revascularization with 1 stent. Severe proximal RCA stenosis s/p successful revascularization with 1 stent. Severe mid LAD in-stent restenosis. Status post successful revascularization with balloon angioplasty.. 3. Severely elevated right and left-sided cardiac pressures. 4. Mid Left Anterior Descending was treated with a Balloon. 5. Proximal Right Coronary Artery was treated with a Drug Eluting Stent, and Drug Eluting Stent. 6. Distal Right Coronary Artery was treated with a Balloon, and Drug Eluting Stent. Recommendations * Dual platelet therapy with aspirin and Plavix for at least 1 year. * High intensity statin therapy. * Outpatient cardiology follow-up in 2 weeks. * Patient will need continued diuresis as pressures are elevated on right heart cath. Interventional RX Recommendation: PCI w/o planned CABG Diagnostic RX Recommendation: PCI w/o planned CABG Anticoagulation: Heparin Pressures Phase:Rest AO : 91 / 78 ( 85 ) @ 10:48:00 AM 128 / 96 ( 111 ) @ 11:09:00 AM 193 / 85 ( 125 ) @ 11:11:00 AM 142 / 96 ( 111 ) @ 11:11:00 AM 113 / 84 ( 97 ) @ 11:18:00 AM 114 / 85 ( 99 ) @ 11:22:00 AM RV : 45 / 18 / 22 @ 10:35:00 AM PA : 45 / 28 ( 34 ) @ 10:34:00 AM RA : a wave = 23 v wave = 25 mean = 23 @ 10:35:00 AM PCW : a wave = 30 v wave = 31 mean = 28 @ 10:33:00 AM O2 Content Phase:Rest PA : O2 Content O2: 66.6 @ 10:48:00 AM Saturations Phase:Rest AO : 97 @ 11:09:00 AM PA : 67 @ 10:48:00 AM Cardiac Output Phase:Rest Cesar : 18 @ 10:39:29 AM Cesar Cardiac Index: 9 @ 10:39:29 AM Flow Phase:Rest Qp : 18 @ 10:39:29 AM Qs : 18 @ 10:39:29 AM Clinical Evaluation EBL: 5mL-10mL Procedural Details Procedure Consent Obtained. Hemodynamic formulas in Rest were re-calculated based on hemoglobin value from 03/09/2024 12:00:00 AM. Pre-Procedure Time Out. Identified patient by full name and date of as verbalized by the patient/guarantor. Does the consent match the physician's order: Yes. Accurate & Complete Informed Consent: Yes. Inpatient/Outpatient History & Physical on Chart: Yes. If H&P is completed, is and addenduem needed: No; If yes, is the addendum complete: N/A. Visualize and Verify Site with Patient/Guarantor: N/A. Relevant Radiology Images available: Yes. Pre-op teaching completed and patient verbalized understanding. The risks, benefits, and alternatives of sedation and/or procedure were discussed by physician. The patient agrees to continue. Procedure started. [facility] Clinical Fraility Score: 6: Moderately Frail. 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 Chest Pain Symptom Assessment: Atypical Angina. Correct patient, site and procedure confirmed by cath team. PERRLA. 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 Lungs clear x 5 lobes. IV Site on Arrival: 20 gauge in the right anticubital. IV Site on Arrival: 20 gauge in the left anticubital. IV Fluids: 0.9% NaCl at KVO. 0 mL infused prior to track laborer. right brachial was prepped with chloroprep then draped in the usual sterile fashion. bilateral groins was prepped with chloroprep then draped in the usual sterile fashion. Baseline sample Acquired. HR: 80 BPM. Physician arrived. Physician scrubbed in. Immediate Pre-Procedure Time Out. Correct Patient: Yes; Correct Procedure: Yes; Correct Site: Yes; Correct Patient Position: Yes; Correct Supplies: Yes; Dried Flammable Prep: Yes; Blood Products Available: N/A;. Lidocaine 1% infiltrated to the right brachial. Sheath wire inserted through the right brachial IV catheter. IV catheter removed OTW. Decker-Asya MON catheter inserted. Oximetry samples were obtained. Normal venous range: 60-85%. Normal arterial range: 95-100%. Pressure measurements obtained. Decker-Asya out. Lidocaine 1% infiltrated to the right groin. Arterial access obtained with micropuncture set. Wire unable to advance. Wire and needle out. Arterial access obtained with micropuncture set. ABG drawn and sent with respiratory therapy. Oxygen started at 2liters/min via nasal canula. A 5 citizen [place] JL4 catheter in over wire. Multiple views taken of left coronary artery. Catheter removed over the standard wire. A 5 citizen [place] JR4 catheter in over wire. Multiple views taken of right coronary artery. Catheter removed over the standard wire. 6 citizen [place] JR 4 guide catheter was inserted over the wire. Runthrough guidewire was advanced through the guide catheter to lesion in the distal RCA. Inflation number : 1 A AB TREK 2.50X12 RX BALLOON was prepped and advanced across the Dist RCA , then inflated to 8 MALLY for 0:13 seconds. Balloon out. AP Pads placed on the patient. Inflation Number : 2 A LUCINA Nielsen KB 2.5X15 ERICK -Lot Number# _[id number] EXP: 07/31/2026 was prepped and advanced across the Dist RCA. The stent was deployed at 12 MALLY for 0:18 seconds. Inflation number: 1 The stent balloon was then re-inflated across the Prox RCA to 12 MALLY for 0:07 seconds. Inflation number: 2 The stent balloon was then re-inflated across the Prox RCA to 12 MALLY for 0:07 seconds. Inflation number: 3 The stent balloon was then re-inflated across the Prox RCA to 12 MALLY for 0:06 seconds. Stent balloon out over wire. Inflation Number : 4 A MDT R KB 3.0X18 ERICK -Lot Number# _[id number] EXP: 05/10/2026 was prepped and advanced across the Prox RCA. The stent was deployed at 12 MALLY for 0:20 seconds. Stent balloon out over wire. Results checked. Wire out. Guide catheter out. ACT drawn. Results 270 seconds. Therapeutic limits - pre-heparin administration 90-150 seconds and monitoring heparin during a vascular procedure >250 seconds. 6 citizen [place] XB 3.5 guide catheter was inserted over the wire. Runthrough guidewire was advanced through the guide catheter to lesion in the mid LAD. Inflation number : 1 A MDT NC EUPHORA RX [id number] BALLOON was prepped and advanced across the Mid LAD , then inflated to 12 MALLY for 0:16 seconds. Inflation number: 2 The MDT NC EUPHORA RX [id number] BALLOON was reinflated across the Mid LAD, to 12 MALLY for 0:15 seconds. Balloon out. Wire out. Guide catheter out. ACT drawn. Results 314 seconds. Therapeutic limits - pre-heparin administration 90-150 seconds and monitoring heparin during a vascular procedure >250 seconds. A Right femoral angiogram was performed to determine safe placement of closure device. Lidocaine 1% infiltrated to the right groin. A Angio-Seal VIP ([facility]) was successful obtaining hemostatsis at the Right Radial artery insertion site. A Manual Compression was successful obtaining hemostatsis at the Right Brachial Vein insertion site. Post Procedure: Pulses reassessed and unchanged. PERRLA. 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 No VTE prophylaxis required. Vital chart was stopped. Medication's Wasted: Heparin = 4000 units. Medication's Wasted: Lidocaine 1% = 10 mL. Total IV fluids: 30 mL. Complications: None. Estimated blood loss: 5mL-10mL. Responsiveness - Normal response to verbal stimuli; alert and oriented, PERRLA. Airway - Unaffected, no intervention required; spontaneous ventilation. Circulation: W/N/L, pulses unchanged. Nausea/Vomiting: No. Procedure completed. Patient transferred by bed to CPRU. Access Site Site: Right Brachial Vein Sheath Size: 6 Fr Hemostasis Method: Manual Compression Hemostasis Success: Successful Site: Right Radial artery Sheath Size: 6 Fr Hemostasis Method: Angio-Seal VIP ([facility]zy) Hemostasis Success: Successful Procedure Medications Start: 9:21 AM Stop: 9:21 AM Medication: Aspirin Amount: 325 mg Route: P.O. Start: 9:26 AM Stop: 9:26 AM Medication: Fentanyl Amount: 25 mcg Route: I.V. Start: 9:29 AM Stop: 9:29 AM Medication: Benadryl Amount: 25 mg Route: I.V. Start: 9:42 AM Stop: 9:42 AM Medication: Fentanyl Amount: 25 mcg Route: I.V. Start: 9:45 AM Stop: 9:45 AM Medication: Versed Amount: 1 mg Route: I.V. Start: 9:58 AM Stop: 9:58 AM Medication: Heparin Amount: 7000 units Route: I.V. Start: 10:11 AM Stop: 10:11 AM Medication: Fentanyl Amount: 25 mcg Route: I.V. Start: 10:18 AM Stop: 10:18 AM Medication: Heparin Amount: 1000 units Route: I.V. Start: 10:21 AM Stop: 10:21 AM Medication: Fentanyl Amount: 25 mcg Route: I.V. Start: 10:24 AM Stop: 10:24 AM Medication: Plavix Amount: 600 mg Route: P.O. I, the attending physician, have reviewed and verified all procedure medications. Yes, all medications given per verbal order History/Risk Factors Hypertension: Yes Dyslipidemia: Yes Peripheral Arterial Disease (PAD): No Myocardial Infarction (VT): Yes Obesity: No Renal Disease: No Tobacco Use: Current/Recent(w/in 1 year) Prior Interventions PCI: Yes CABG: No Valve Surgery: No Date of PCI: 10/18/2016 Report Signatures Finalized by Maged Sanchez MD on 03/12/2024 11:00 PM
--- NOTE | 2024-03-09 09:23 | W.PM.OPSUD ---
Surgery/Procedure H&P Update DATE OF PROCEDURE: March 09, 2024 DATE H&P PERFORMED: 03/07/24 H&P UPDATE INFORMATION: I have reviewed H&P completed within last 30 days, I have examined patient prior to procedure and No changes to prior documentation CHANGES TO PREVIOUS DOCUMENTATION: Patient was scheduled to undergo outpatient right and left heart cath. However he was volume overloaded. He was admitted and underwent IV diuresis. Today plan is to proceed with right and left heart cath with possible percutaneous coronary intervention. PREOP DIAGNOSIS: LV dysfunction/congestive heart failure PRIMARY INDICATION FOR PROCEDURE: LV dysfunction/congestive heart failure PLANNED PROCEDURE: Operation Date: 03/07/24 07:00 Proposed Procedures Right and left Cardiac Catheterization - Maged Sanchez M.D Possible percutaneous coronary intervention PATIENT REASSESSED PRIOR TO SEDATION, WITH NO CHANGE NOTED: Yes PHYSICAL EXAM: alert, oriented x 3 and regular rate & rhythm OTHER PERTINENT EXAM FINDINGS: Mild crackles bilaterally AIRWAY EVAL/ANESTHESIA PLAN: normal airway, ASA IV, Local Anesthesia, Risks, benefits & alternatives of sedation and/or procedure discussed and Patient agrees to continue as planned ADDITIONAL INFORMATION: Moderate sedation
[2024-03-09 09:55] LABS: Alveolar-Arterial Oxygen Gradi 7.1 mmHg (5-10); Arterial Blood Gas Hematocrit 17.6 % (42-52); Blood Gas Operator Identificat GD; Blood Gas Sample Site Not specified; Carboxyhemoglobin 1.4 %THgb (0.4-20.1); HGB O2 Sat 64.7 % (95-100); Methemoglobin 1.4 % (0.4-1.5); Oxygen Device ROOM AIR; Total Hemoglobin 5.7 g/dL (14-18)
[2024-03-09 09:56] LABS: Blood Gas Sample Type Venous
[2024-03-09 09:58] LABS: Arterial Blood Gas Hematocrit 22.2 % (42-52); Blood Gas Operator Identificat GD; Blood Gas Sample Site Not specified; Blood Gas Sample Type Venous; Carboxyhemoglobin 1.4 %THgb (0.4-20.1); HGB O2 Sat 94.1 % (95-100); Methemoglobin 1.2 % (0.4-1.5); Oxygen Device ROOM AIR; Total Hemoglobin 7.2 g/dL (14-18)
--- NOTE | 2024-03-09 12:25 | PC.NURSE ---
Notified Dr Sanchez That pt BP ystolic is low. and is on lisinopril,metoprolol,metolazone. per dr sanchez, to hold his meds. continue IV lasix q12hrs tonight.
[2024-03-09] MEDS: aspirin 81 mg EC Tablet PO (14:38)
[2024-03-09] MEDS: atorvastatin 40 mg Tablet PO (19:27)
[2024-03-09] MEDS: metoprolol tartrate 25 mg Tablet PO (19:27)
--- NOTE | 2024-03-09 20:12 | PC.NURSE ---
Pt agreed to get his new Rx here as meds to bed. brother mikala will be his transportation, he is off work around 2:30 pm and will be ablt to pick him up around 4pm. messaged relayed to night nurse.
[2024-03-09] MEDS: FUROsemide 10 mg/mL SDV 4mL 40 MG IVP (20:37)
[2024-03-10] VITALS: BP 95/73; PULSE 89; RESP 26; TEMP 36.8; O2SAT 94
[2024-03-10 04:00] VITALS: BP 91/63; PULSE 96; RESP 19; TEMP 37; O2SAT 92
[2024-03-10 04:57] LABS: Basophils % 0.7 %; Hematocrit 30.2 % (37-53); Lymphocytes # 0.2 10^3/uL (0.8-4.8); Lymphocytes % 15.6 %; Mean Corpuscular HGB Conc 33.1 g/dL (30-55); Mean Corpuscular Hemoglobin 30.7 pg (27-33); Mean Corpuscular Volume 92.6 fl (82-101); Mean Platelet Volume 10.3 fL (7.4-10.4); Monocytes # 0.2 10^3/uL (0.2-0.9); Neutrophils % 66.7 %; Nucleated Red Blood Cells % 0 %; Platelet Count 72 10^3/cmm (157-399); Red Blood Count 3.26 10^6/uL (3.85-5.65); Red Cell Distribution Width 13.1 % (12.1-15.1); White Blood Count 1.47 10^3/uL (3.29-11.43)
[2024-03-10 05:13] LABS: Alanine Aminotransferase 10 U/L (0-41); Alkaline Phosphatase 80 U/L (40-130); Anion Gap 12.7 (5-19); Aspartate Amino Transferase 13 U/L (0-40); Blood Urea Nitrogen 18 mg/dL (8-23); Calcium 8.9 mg/dL (8.5-10.5); Carbon Dioxide 31 mmol/L (22-29); Chloride 98 mmol/L (98-107); Globulin 2.4 g/dL (1.3-4.6); Glomerular Filtration Rate 51.2 mL/min (90-130); Glucose 86 mg/dL (65-115); Osmolality Calculated 287 mOsm/kg (285-295); Potassium 3.7 mmol/L (3.5-5.1); Sodium 138 mmol/L (136-145); Total Bilirubin 1.2 mg/dL (0.15-1.2); Total Protein 5.4 g/dL (6.6-8.7)
[2024-03-10 05:22] LABS: Neutrophils # 0.98 10^3/uL (1.8-7.7); Slide Review Slide Review Perform
[2024-03-10 08:00] VITALS: BP 98/59; PULSE 92; RESP 17; TEMP 36.9; O2SAT 93
[2024-03-10] MEDS: lisinopril 20 mg Tablet 40 MG PO (08:53)
[2024-03-10] MEDS: gabapentin 100 mg Capsule PO ×2 (08:54→15:18)
[2024-03-10] MEDS: potassium chloride ER 20 mEq Tablet 40 MEQ PO (08:54)
[2024-03-10] MEDS: levothyroxine 25 mcg Tablet PO (08:54)
[2024-03-10] MEDS: aspirin 81 mg EC Tablet PO (08:54)
[2024-03-10] MEDS: clopidogrel 75 mg Tablet PO (08:54)
[2024-03-10] MEDS: enoxaparin 40 mg/0.4 mL Syringe SUBCUT (08:54)
[2024-03-10] MEDS: metoprolol tartrate 25 mg Tablet PO (08:55)
--- NOTE | 2024-03-10 10:34 | P.DS_ITS ---
Discharge Providers Date of Admission: 03/07/24 07:40 Date of Discharge: March 10, 2024 Attending Provider at Admission: Maged Sanchez M.D Attending Provider at Discharge: Maged Sanchez M.D Primary Care Provider: Ira Noyola DO Diagnoses at Discharge Discharge Diagnosis (1) Acute congestive heart failure: Status: Inactive (2) Dyslipidemia: Status: Acute (3) ASHD (arteriosclerotic heart disease): Status: Acute (4) HTN (hypertension): Status: Acute Qualifiers: Hypertension type: primary hypertension Qualified Code(s): I10 - Essential (primary) hypertension (5) COPD (chronic obstructive pulmonary disease): Status: Acute (6) Pancytopenia: Status: Acute Reason for Visit Reason for Visit: I50.1 Brief History: 63 year old male with past medical history of coronary artery disease, recent decrease in LV systolic function presented to hospital for outpatient right and left heart cath. However on exam before the procedure, he was found to be volume overloaded. Has abdominal distention and significant lower extremity edema. He is also having worsening dyspnea on exertion and resting shortness of breath. Occasional chest pressure. The patient was reluctant to be admitted to hospital however eventually agreed to be admitted for 2 days. Hospital Course Hospital Course Aggressive IV diuretics were given. He diuresed well and was almost in 9 to 10 L negative balance by day of discharge. 1 day prior to discharge he had a right and left heart cath. Right heart cath showed elevated right and left-sided cardiac pressures. Coronary angiogram showed severe multivessel CAD including critical distal RCA stenosis, severe proximal RCA stenosis. RCA underwent successful revascularization with 2 stents. Severe in-stent restenosis of mid LAD stent was noted. Underwent successful revascularization with balloon angioplasty. Patient had significant small sized OM1 stenosis that was treated medically. He was discharged home on dual antiplatelet therapy. Of note patient was noted to have significant pancytopenia during hospit alization. Patient however wanted to have workup done as outpatient as did not want to extend his hospital stay. He will follow-up with his primary care physician next week. In the past he has seen hematology for low blood counts. Physical Exam Narrative: GENERAL: Patient is alert, awake and oriented x3. [] NECK: No jugular vein distension. [] HEENT: No cyanosis. No icterus. No pallor. [] HEART: Regular S1 and S2. No murmur, rub or gallop. [] LUNGS: Clear to auscultate bilaterally. [] CENTRAL NERVOUS SYSTEM: Grossly nonfocal. [] EXTREMITIES: Lower extremities with 1+ edema bilaterally. Discharge Data Studies Completed and Pending Completed Studies During Hospitalization Category Date Time Status XR chest 1V portable [id number] Routine Exams 03/07/24 08:17 Completed Pending at discharge Category Date Time Status INSIGHTS ANALYST request for service Routine Exams 03/09/24 08:00 Ordered ABG Coox Only Routine Lab 03/09/24 09:50 Results Laboratory Results WBC 1.47 10^3/uL (3.29-11.43) L 03/10/24 04:35 RBC 3.26 10^6/uL (3.85-5.65) L 03/10/24 04:35 Hgb 10.00 g/dL (11.27-16.99) L 03/10/24 04:35 Hct 30.2 % (37-53) L 03/10/24 04:35 MCV 92.6 fl (82-101) 03/10/24 04:35 MCH 30.7 pg (27-33) 03/10/24 04:35 MCHC 33.1 g/dL (30-55) 03/10/24 04:35 RDW 13.1 % (12.1-15.1) 03/10/24 04:35 Plt Count 72 10^3/cmm (157-399) L 03/10/24 04:35 MPV 10.3 fL (7.4-10.4) 03/10/24 04:35 Neut % (Auto) 66.7 % 03/10/24 04:35 Lymph % (Auto) 15.6 % 03/10/24 04:35 [place] % (Auto) 15.0 % 03/10/24 04:35 Eos % (Auto) 2.0 % 03/10/24 04:35 Baso % (Auto) 0.7 % 03/10/24 04:35 Neut # (Auto) 0.98 10^3/uL (1.8-7.7) L* 03/10/24 04:35 Lymph # (Auto) 0.2 10^3/uL (0.8-4.8) L 03/10/24 04:35 [place] # (Auto) 0.2 10^3/uL (0.2-0.9) 03/10/24 04:35 Eos # (Auto) 0.0 10^3/uL (0.0-0.8) 03/10/24 04:35 Baso # (Auto) 0.0 10^3/uL (0.0-0.1) 03/10/24 04:35 Nucleated RBC % (auto) 0 % 03/10/24 04:35 Nucleated RBCs # 0.0 /100WBC 03/10/24 04:35 Specimen Type Venous 03/09/24 09:50 Sample Site Not specified 03/09/24 09:50 Alberto Test N/a 03/09/24 09:50 A-a O2 Gradient 7.1 mmHg (5-10) 03/09/24 09:40 Hematocrit 22.2 % (42-52) L 03/09/24 09:50 Hgb O2 Saturation 94.1 % (95-100) L 03/09/24 09:50 Carboxyhemoglobin 1.4 %THgb (0.4-20.1) 03/09/24 09:50 Methemoglobin 1.2 % (0.4-1.5) 03/09/24 09:50 Total Hemoglobin 7.2 g/dL (14-18) L 03/09/24 09:50 O2 Delivery Device Room air 03/09/24 09:50 Software Business Analyst ID [id number] 03/09/24 09:50 Sodium 138 mmol/L (136-145) 03/10/24 04:35 Potassium 3.7 mmol/L (3.5-5.1) 03/10/24 04:35 Chloride 98 mmol/L (98-107) 03/10/24 04:35 Carbon Dioxide 31 mmol/L (22-29) H 03/10/24 04:35 Anion Gap 12.7 (5-19) 03/10/24 04:35 BUN 18 mg/dL (8-23) 03/10/24 04:35 Creatinine 1.4 mg/dL (0.7-1.2) H 03/10/24 04:35 GFR Calculation 51.2 mL/min (90-130) L 03/10/24 04:35 Glucose 86 mg/dL (65-115) 03/10/24 04:35 Calculated Osmolality 287 mOsm/kg (285-295) 03/10/24 04:35 Calcium 8.9 mg/dL (8.5-10.5) 03/10/24 04:35 Total Bilirubin 1.2 mg/dL (0.15-1.2) 03/10/24 04:35 AST 13 U/L (0-40) 03/10/24 04:35 ALT 10 U/L (0-41) 03/10/24 04:35 Alkaline Phosphatase 80 U/L (40-130) 03/10/24 04:35 NT-Pro-B Natriuret Pep 1938 pg/mL (0-125) H 03/07/24 06:20 Total Protein 5.4 g/dL (6.6-8.7) L 03/10/24 04:35 Albumin 3.0 g/dL (3.5-5.2) L 03/10/24 04:35 Globulin 2.4 g/dL (1.3-4.6) 03/10/24 04:35 Vitals Last Vital Signs Temp 98.5 F 03/10/24 08:00 Pulse 92 03/10/24 08:00 Resp 17 03/10/24 08:00 BP 98/59 03/10/24 08:00 Pulse Ox 93 03/10/24 08:00 O2 Del Method Room Air 03/10/24 04:00 Discharge Plan Discharge Patient Disposition: Home Condition: Stable Prescriptions: New atorvastatin 40 mg tablet 40 mg PO DAILY Qty: 90 3RF furosemide 20 mg tablet 20 mg PO BID Qty: 120 3RF clopidogrel 75 mg tablet 75 mg PO DAILY Qty: 90 3RF Continued nitroglycerin [Nitrostat] 0.4 mg tablet, sublingual 0.4 mg SUBLINGUAL Q5M PRN (Reason: chest pain) Qty: 60 2RF metoprolol tartrate 25 mg tablet 25 mg PO DAILY fenofibrate micronized 134 mg capsule 134 mg PO DAILY levothyroxine 25 mcg capsule 25 mcg PO DAILY zonisamide 100 mg capsule 400 mg PO DAILY aspirin [Aspir-81] 81 mg tablet,delayed release (DR/EC) 81 mg PO DAILY gabapentin 100 mg capsule 100 mg PO TID isosorbide mononitrate 60 mg tablet extended release 24 hr 60 mg PO DAILY furosemide [Lasix] 20 mg tablet 20 mg PO DAILY Changed potassium chloride 10 mEq tablet extended release 20 meq PO DAILY Qty: 60 2RF lisinopril 40 mg tablet 20 mg PO DAILY Qty: 90 3RF Discontinued simvastatin 40 mg tablet 40 mg PO DAILY Discharge Orders: Discharge Order (Routine); Ordered 03/10/24 Ordered By: Maged Sanchez Other Ambulatory Orders: Basic Metabolic Panel (Routine) Timeframe: 1 Week Facility: [facility] - Location: Lab - Main Lab Ordered By: Maged Sanchez Referrals: Ira Noyola DO [Primary Care Provider] - 03/17/24 10:30 am Hailey Stockton FNP [Nurse Practitioner] - 03/22/24 1:30 pm Discharge Diet: Cardiac and Low Salt Discharge Activity: Increase activity as tolerated Patient Instructions: Furosemide (By mouth) (Lasix), Atorvastatin (By mouth) (Lipitor, Atorvaliq), Clopidogrel (By mouth), Heart Failure (DC), A-fib (Atrial Fibrillation) (DC), Coronary Angioplasty (DC), Coronary Intravascular Stent Placement (DC), Coronary Angioplasty (DC), CHF Stoplight, Opioid Safety, Post Angiogram Home Care Instructions Discharge Attestations Time Spent in Discharge Care*: less than 30 min Quality Metrics Clinical Quality Measures [ No reported AMI, CVA or VTE this stay] Coding Level of Care Code Acute Code for Chg Fwd Diagnoses Acute congestive heart failure I50.9 Dyslipidemia E78.5 ASHD (arteriosclerotic heart disease) I25.10 Primary hypertension I10 Hypertension type: primary hypertension COPD (chronic obstructive pulmonary disease) J44.9 Pancytopenia D61.818
[2024-03-10 12:00] VITALS: BP 112/74; PULSE 87; RESP 14; TEMP 36.8; O2SAT 97
[2024-03-10 12:38] VITALS: BP 112/74; PULSE 87; RESP 14; TEMP 36.8; O2SAT 97
--- NOTE | 2024-03-10 16:18 | PC.NURSE ---
Discharge Note Patient discharged to [home] via [w/c to POV] accompanied by [family]. Discharge instructions reviewed with patient and/or technical sales representatives. Mobile pharmacy medications and/or prescriptions provided. Belongings/home medications returned.
== END 2024-03-10 16:19 | disposition home or self-care (01) | DRG 322 ==
LOC: CSU 07:41
PROVIDERS: Admitting Provider Internal Medicine; PCP Family Medicine; Visit Provider Internal Medicine
PROC: B2141ZZ Fluoroscopy of Right Heart using Low Osmolar Contrast (ICD-10-PCS; principal; 2024-03-09 10:45)
PROC: B2141ZZ Fluoroscopy of Right Heart using Low Osmolar Contrast (ICD-10-PCS; 2024-03-09 10:45)
DX: I11.0 Hypertensive heart disease with heart failure (principal); D61.818 Other pancytopenia; I48.20 Chronic atrial fibrillation, unspecified; I50.9 Heart failure, unspecified; I25.10 Atherosclerotic heart disease of native coronary artery without angina pectoris; E78.5 Hyperlipidemia, unspecified; Z72.0 Tobacco use; Z79.82 Long term (current) use of aspirin; J44.9 Chronic obstructive pulmonary disease, unspecified
CPT/HCPCS: 36415; 71045; 80048; 80053; 82810; 83880; 85025; 85347; 92920; 93005; 93456; 96372; 96374; 96375; 96376; 99152; 99153; C1725; C1751; C1760; C1769; C1874; C1887; C1894; C9600; G0269; J1200; J1644; J1650; J1940; J2250; J3010; J3490; J7030; Q0163; Q9967

== ENCOUNTER → 2024-03-22 14:44 | Outpatient (BNVA) | payer MEDICAID, SELFPAY | PROVIDERS: PCP Family Medicine; Visit Provider Nurse Practitioner Family | DX: I50.22 Chronic systolic (congestive) heart failure (principal); N17.9 Acute kidney failure, unspecified | CPT/HCPCS: 36415; 80048; 83880; 99214 ==

== ENCOUNTER 2024-05-15 13:54 | Emergency (ER) | payer MEDICAID, SELFPAY ==
[2024-05-15 14:10] VITALS: BP 113/75; PULSE 86; RESP 20; TEMP 37.1; O2SAT 96
--- NOTE | 2024-05-15 14:16 | ECG_ITS ---
Test Date: 2024-05-15 Pat Name: Trino Maddox Department: Room: Gender: Male Dietary Internship: : 1960 Requested By: Lisa Dietz Order Number: [id number] Nieves MD: Maged Sanchez M.D. Measurements Intervals [place] Rate: 106 P: 0 [place]: 0 QRS: -27 QRSD: 118 T: 151 QT: 334 QTc: 443 Interpretive Statements ATRIAL FIBRILLATION WITH RAPID VENTRICULAR RESPONSE POSSIBLE ANTERIOR MYOCARDIAL INFARCTION , PROBABLY OLD [30 ms Q WAVE IN V3/V4, OR R < 0.2 mV IN V4] Compared to ECG 03/07/2024 09:09:36 No significant changes Electronically Signed On 05-15-2024 15:04:33 CDT by Maged Sanchez M.D. [email or web address]
--- NOTE | 2024-05-15 14:19 | XRR_ITS ---
PROCEDURE INFORMATION: Exam: XR Chest Exam date and time: 05/15/2024 2:26 PM Age: 63 years old Clinical indication: Shortness of breath; Additional info: Fluid overload TECHNIQUE: Imaging protocol: Radiologic exam of the chest. Views: 1 view. COMPARISON: CR XR chest 1V portable [id number] 03/07/2024 7:34 AM FINDINGS: Lungs: Shallow inspiration with low lung volumes. Mild bibasilar infiltrate, atelectasis, and/or crowding. Pleural spaces: No large or obvious pneumothorax nor pleural effusion seen. Heart/Mediastinum: Stable heart size. Bones/joints: Degenerative changes spine. XR/XR chest 1V portable [id number] IMPRESSION: Shallow inspiration with low lung volumes. Mild bibasilar infiltrate, atelectasis, and/or crowding, appearing new or increased right lung base, and similar left lung base, compared to 03/07/2024.
[2024-05-15 14:51] LABS: Basophils % 1.2 %; Eosinophils # 0.2 10^3/uL (0.0-0.8); Hematocrit 28.8 % (37-53); Lymphocytes # 0.6 10^3/uL (0.8-4.8); Lymphocytes % 17.3 %; Mean Corpuscular HGB Conc 31.9 g/dL (30-55); Mean Corpuscular Hemoglobin 30.3 pg (27-33); Mean Corpuscular Volume 94.7 fl (82-101); Mean Platelet Volume 10.2 fL (7.4-10.4); Monocytes # 0.5 10^3/uL (0.2-0.9); Monocytes % 14.1 %; Neutrophils # 2.12 10^3/uL (1.8-7.7); Neutrophils % 62.1 %; Nucleated Red Blood Cells % 0 %; Platelet Count 101 10^3/cmm (157-399); Red Blood Count 3.04 10^6/uL (3.85-5.65); Red Cell Distribution Width 14.5 % (12.1-15.1); White Blood Count 3.41 10^3/uL (3.29-11.43)
[2024-05-15 15:08] LABS: INR 1.21 (0.8-1.2)
[2024-05-15 15:31] LABS: Alanine Aminotransferase 13 U/L (0-41); Albumin Level 3.1 g/dL (3.5-5.2); Alkaline Phosphatase 94 U/L (40-130); Anion Gap 12.2 (5-19); Aspartate Amino Transferase 19 U/L (0-40); Blood Urea Nitrogen 18 mg/dL (8-23); Calcium 8.6 mg/dL (8.5-10.5); Carbon Dioxide 29 mmol/L (22-29); Chloride 103 mmol/L (98-107); Creatinine Clr Calc Pharmacy 48.7974; Globulin 2.6 g/dL (1.3-4.6); Glomerular Filtration Rate 43.9 mL/min (90-130); Glucose 97 mg/dL (65-115); NT Pro B Type Natriuretic Pept 2971 pg/mL (0-125); Osmolality Calculated 294 mOsm/kg (285-295); Potassium 3.2 mmol/L (3.5-5.1); Sodium 141 mmol/L (136-145); Total Bilirubin 1.4 mg/dL (0.15-1.2); Total Protein 5.7 g/dL (6.6-8.7)
--- NOTE | 2024-05-15 17:06 | ED_ITS ---
HPI - Recheck/Abnormal Lab/Rx 2 General: Chief Complaint: Recheck/Abnormal Lab/Rx Stated Complaint: sent by PCP not sure why Time Seen by Provider: 05/15/24 16:19 Source: patient Mode of arrival: ambulatory Limitations: no limitations History of Present Illness: 63-year-old male with a history of CHF h e is also a history of IL and had stents placed recently here he states that he has had increased water retention and swelling in his lower extremities and abdomen and weight gain since being discharged here patient was to have a follow-up appoint with his PCP today but they had called him before and told to come to the ER to have the labs drawn. He has no complaints besides edema he denies any increased shortness of breath he denies any chest pain denies any abdominal pain. Denies any cough or fever Review of Systems 2 Const: Denies: fever(s), chills, body aches or change in appetite ENMT: Denies: throat pain or dental pain Card: Denies: chest pain Resp: Denies: dyspnea GI: Denies: abdominal pain, nausea, vomiting or diarrhea Musc: Reports: extremity swelling; Denies: neck pain or back pain Skin/Breast: Denies: rash Neuro: Denies: headache(s) PFSH ED 2 PFSH: Medical History Systolic CHF 01/26/2024: LVEF 40 to 45% Acute congestive heart failure HTN (hypertension) ASHD (arteriosclerotic heart disease) Myocardial infarction Dyslipidemia COPD (chronic obstructive pulmonary disease) Surgical History S/P angioplasty with stent Family History Mother Hypertension Other CAD (coronary artery disease) Social History Smoking and tobacco/nicotine status: current some day tobacco/nicotine user Alcohol intake: current Alcohol intake frequency: holidays/special occasions only Alcohol type: beer Household members: significant other Marital status: Life Partner service: No Current occupational status: disabled Physical Exam 2 Const: COMMON NORMALS: no acute distress, patient oriented x3 and healthy appearing HENMT: COMMON NORMALS: normocephalic and atraumatic HEAD & SCALP: n ormocephalic and atraumatic Eye: COMMON NORMALS: Equal, round and reactive pupils present and EOMs intact bilaterally PUPIL: Yes Equal, round and reactive pupils present Neck/C-Spine: COMMON NORMALS: full ROM and supple Chest: COMMONS NORMALS: normal inspection of the chest Resp: COMMON NORMALS: normal respiratory effort, No retractions, No use of accessory muscles and clear to auscultation bilaterally AUSCULTATION: clear to auscultation bilaterally Cardio: COMMON NORMALS: regular rate, regular rhythm and No murmurs present (Cardio) RATE: regular rate RHYTHM: regular rhythm GI: COMMON NORMALS: Soft to palpation, non-tender and no masses PALPATION: Yes Soft to palpation OTHER: abd distended Extremity: COMMON NORMALS: full ROM NARRATIVE EXTREMITY EXAM: 2+ edema to bilateral lower extremities Neuro: COMMON NORMALS: patient oriented x3, moves all extremities and no focal motor deficits Psych: COMMON NORMALS: mental status grossly normal, Normal thought process present and cooperative THOUGHT PROCESS: Normal thought process present Skin: COMMON NORMALS: no rashes or lesions noted and no wounds GENERAL SKIN EXAM: no rashes or lesions noted Course 2 Vital Signs: Vital signs: Vital Signs Temperature 98.8 F 05/15/24 14:10 Pulse Rate 86 05/15/24 14:10 Respiratory Rate 20 H 05/15/24 14:10 Blood Pressure 113/75 05/15/24 14:10 Pulse Oximetry 96 05/15/24 14:10 Oxygen Delivery Me thod Room Air 05/15/24 14:10 MDM - Recheck/Abnormal Lab/Rx Medical Decision Making Patient presents here with lower extremity swelling he has no other complaints at this time he is having edema he does have abdominal distention as well he denies any pain he is liver enzymes are normal he denies any history of cirrhosis did give him a dose of Lasix he has follow-up with his public relations analyst and 2 weeks he is to follow back up with his PCP as well likely needs abdominal imaging outpatient he is return if worsening he understands agrees to plan Medical Records I reviewed the patient's medical records. Lab Data 05/15/24 14:31 05/15/24 14:31 Radiology Impressions Chest X-Ray 05/15/24 14:19 IMPRESSION: Shallow inspiration with low lung volumes. Mild bibasilar infiltrate, atelectasis, and/or crowding, appearing new or increased right lung base, and similar left lung base, compared to 03/07/2024. Laboratory Results WBC 3.41 10^3/uL (3.29-11.43) 05/15/24 14:31 RBC 3.04 10^6/uL (3.85-5.65) L 05/15/24 14:31 Hgb 9.20 g/dL (11.27-16.99) L 05/15/24 14:31 Hct 28.8 % (37-53) L 05/15/24 14:31 MCV 94.7 fl (82-101) 05/15/24 14:31 MCH 30.3 pg (27-33) 05/15/24 14:31 MCHC 31.9 g/dL (30-55) 05/15/24 14:31 RDW 14.5 % (12.1-15.1) 05/15/24 14:31 Plt Count 101 10^3/cmm (157-399) L 05/15/24 14:31 MPV 10.2 fL (7.4-10.4) 05/15/24 14:31 Neut % (Auto) 62.1 % 05/15/24 14:31 Lymph % (Auto) 17.3 % 05/15/24 14:31 [place] % (Auto) 14.1 % 05/15/24 14:31 Eos % (Auto) 5.0 % 05/15/24 14:31 Baso % (Auto) 1.2 % 05/15/24 14:31 Neut # (Auto) 2.12 10^3/uL (1.8-7.7) 05/15/24 14:31 Lymph # (Auto) 0.6 10^3/uL (0.8-4.8) L 05/15/24 14:31 [place] # (Auto) 0.5 10^3/uL (0.2-0.9) 05/15/24 14:31 Eos # (Auto) 0.2 10^3/uL (0.0-0.8) 05/15/24 14:31 Baso # (Auto) 0.0 10^3/uL (0.0-0.1) 05/15/24 14:31 Nucleated RBC % (auto) 0 % 05/15/24 14:31 Nucleated RBCs # 0.0 /100WBC 05/15/24 14:31 PT 15.70 SECONDS (12.1-14.9) H 05/15/24 14:31 INR 1.21 (0.8-1.2) H 05/15/24 14:31 Sodium 141 mmol/L (136-145) 05/15/24 14:31 Potassium 3.2 mmol/L (3.5-5.1) L 05/15/24 14:31 Chloride 103 mmol/L (98-107) 05/15/24 14:31 Carbon Dioxide 29 mmol/L (22-29) 05/15/24 14:31 Anion Gap 12.2 (5-19) 05/15/24 14:31 BUN 18 mg/dL (8-23) 05/15/24 14:31 Creatinine 1.6 mg/dL (0.7-1.2) H 05/15/24 14:31 GFR Calculation 43.9 mL/min (90-130) L 05/15/24 14:31 Glucose 97 mg/dL (65-115) 05/15/24 14:31 Calculated Osmolality 294 mOsm/kg (285-295) 05/15/24 14:31 Calcium 8.6 mg/dL (8.5-10.5) 05/15/24 14:31 Total Bilirubin 1.4 mg/dL (0.15-1.2) H 05/15/24 14:31 AST 19 U/L (0-40) 05/15/24 14:31 ALT 13 U/L (0-41) 05/15/24 14:31 Alkaline Phosphatase 94 U/L (40-130) 05/15/24 14:31 NT-Pro-B Natriuret Pep 2971 pg/mL (0-125) H 05/15/24 14:31 Total Protein 5.7 g/dL (6.6-8.7) L 05/15/24 14:31 Albumin 3.1 g/dL (3.5-5.2) L 05/15/24 14:31 Globulin 2.6 g/dL (1.3-4.6) 05/15/24 14:31 All radiology interpretation(s) finalized by discharge Discharge Plan Discharge Patient Disposition: Home Clinical Impression: Bilateral lower extremity edema Condition: Stable Prescriptions: No Action nitroglycerin [Nitrostat] 0.4 mg tablet, sublingual 0.4 mg SUBLINGUAL Q5M PRN (Reason: chest pain) Qty: 60 2RF metoprolol tartrate 25 mg tablet 25 mg PO DAILY fenofibrate micronized 134 mg capsule 134 mg PO DAILY levothyroxine 25 mcg capsule 25 mcg PO DAILY zonisamide 100 mg capsule 400 mg PO DAILY aspirin [Aspir-81] 81 mg tablet,delayed release (DR/EC) 81 mg PO DAILY gabapentin 100 mg capsule 100 mg PO TID isosorbide mononitrate 60 mg tablet extended release 24 hr 60 mg PO DAILY furosemide [Lasix] 20 mg tablet 20 mg PO DAILY atorvastatin 40 mg tablet 40 mg PO DAILY Qty: 90 3RF potassium chloride 10 mEq tablet extended release 20 meq PO DAILY Qty: 60 2RF lisinopril 40 mg tablet 20 mg PO DAILY Qty: 90 3RF Hold Instructions: hypotension furosemide 20 mg tablet 20 mg PO BID Qty: 120 3RF clopidogrel 75 mg tablet 75 mg PO DAILY Qty: 90 3RF Discharge Orders: Discharge ED (Routine); Ordered 05/15/24 Ordered By: Tigist Payne Referrals: Ira Noyola DO [Primary Care Provider] - 4-7 days Discharge Diet: Advance as tolerated Discharge Activity: Resume usual activity Patient Instructions: Leg Edema (ED) Coding Level of Care Code ED Radiology Technician for Eliza Riggs
== END 2024-05-15 17:15 | disposition home or self-care (01) ==
PROVIDERS: Physician Assistant; Emergency Provider Emergency Medicine; PCP Family Medicine
DX: R60.0 Localized edema (principal); Z79.02 Long term (current) use of antithrombotics/antiplatelets; Z79.82 Long term (current) use of aspirin; I11.0 Hypertensive heart disease with heart failure; I50.20 Unspecified systolic (congestive) heart failure; I25.2 Old myocardial infarction; E78.5 Hyperlipidemia, unspecified; J44.9 Chronic obstructive pulmonary disease, unspecified; Z72.0 Tobacco use
CPT/HCPCS: 36415; 71045; 80053; 83880; 85025; 85610; 93005; 99285

== ENCOUNTER → 2024-05-26 09:57 | Outpatient (BNVA) | payer MEDICAID, SELFPAY | PROVIDERS: PCP Internal Medicine; Visit Provider Internal Medicine Cardiovascular Disease | DX: I25.10 Atherosclerotic heart disease of native coronary artery without angina pectoris (principal); Z95.820 Peripheral vascular angioplasty status with implants and grafts; E78.5 Hyperlipidemia, unspecified; I11.0 Hypertensive heart disease with heart failure; I50.22 Chronic systolic (congestive) heart failure; N17.9 Acute kidney failure, unspecified; D61.818 Other pancytopenia; J44.9 Chronic obstructive pulmonary disease, unspecified; R18.8 Other ascites; Z72.0 Tobacco use; I25.2 Old myocardial infarction | CPT/HCPCS: 99214 ==

== ENCOUNTER → 2024-06-07 11:02 | Outpatient (CLI) | payer MEDICAID, SELFPAY ==
--- NOTE | 2024-06-07 11:07 | CTR_ITS ---
PROCEDURE INFORMATION: Exam: CT Abdomen And Pelvis With Contrast Exam date and time: 06/07/2024 12:28 PM Age: 63 years old Clinical indication: Condition or disease; Other: Other ascites; Patient HX: HX of ascites, liver problems, ; additional info: Other ascites, PT having US too TECHNIQUE: Imaging protocol: Computed tomography of the abdomen and pelvis with contrast. Radiation optimization: All CT scans at this facility use at least one of these dose optimization techniques: automated exposure control; mA and/or kV adjustment per patient size (includes targeted exams where dose is matched to clinical indication); or iterative reconstruction. Contrast material: OMNI 350; Contrast volume: 100 ml; Contrast route: INTRAVENOUS (IV); COMPARISON: 1. CR XR chest 1V portable [id number] 05/15/2024 2:[address] chest w con* [id number] 01/03/2018 10:01 AM RADIATION DOSE METRICS: Total DLP (mGy-cm): 538.58 FINDINGS: Lungs: Left lower lobe calcified pulmonary parenchymal granulomas. Coronary arteries: Atherosclerotic calcifications are present involving the RCA coronary artery. Liver: There is a nodular contour to the liver and hypertrophy of the left lobe lateral segment and caudate lobe, consistent with hepatic cirrhosis. Nonspecific marginally/rim enhancing hypoattenuating lesion in hepatic segment 8 (series 4, image 18). Gallbladder and biliary ducts: Normal. No calcified stones. No ductal dilation. Pancreas: Normal. No ductal dilation. Spleen: The spleen is borderline enlarged measuring 13.1 cm longitudinally. Adrenal glands: Normal. No mass. Kidneys and ureters: Normal. No hydronephrosis. Stomach and bowel: Unremarkable. No obstruction. No mucosal thickening. Appendix: No evidence of appendicitis. Intraperitoneal space: Large volume abdominal and pelvic ascites, new. No pneumoperitoneum. Vasculature: Prominent coronary vein measuring 8.9 mm, draining to the gastrohepatic ligament and paraesophageal region. Moderate abdominal aortic atherosclerotic calcification without aneurysm. The right iliac arteries show mild atherosclerotic calcifications without evidence of aneurysm. Multiple paraesophageal varices, largest approximately 14 mm caliber. Lymph nodes: No enlarged lymph nodes. Urinary bladder: Unremarkable as visualized. Reproductive: Unremarkable as visualized. Bones/joints: Bilateral lower lumbar facet primary osteoarthritis. Lumbar spine vertebral body marginal osteophytes are noted at multiple levels. There is degenerative disc disease at multiple lumbar spine disk levels. Soft tissues: Moderate anasarca. CT/CT abdomen pelvis w con* [id number] IMPRESSION: 1. Hepatic cirrhosis. 2. Nonspecific hepatic lesion. Additional imaging with MRI recommended for further evaluation. 3. Borderline splenomegaly. 4. Interval large volume abdominal ascites. 5. Coronary atherosclerosis.
--- NOTE | 2024-06-07 11:07 | USCV_ITS ---
Trino Maddox Age: 63 Gender: M : 1960 Exam Date: 06/07/2024 11:24 Ordering Phys: Neo Baird MD Technologist: CT Exam Location: [facility] – [place] Indication: sob,copd BP: 90 / 68 HR: Rhythm: Atrial fibrillation Technical Quality: Adequate MEASUREMENTS (Male / Female) Normal Values 2D ECHO LVOT Diameter 2.2 cm LV Ejection Fraction MOD 2C 36.5 % LV Ejection Fraction 2C AL 35.2 % LA Diameter 6.1 cm RA Systolic Volume 4C AL 41.4 ml RA Systolic Volume 4C MOD 40.5 ml LA Sys Volume AL 97.3 cm cubed LA Sys Volume Index AL 50.3 cm cubed/m squared Aorta at Sinotubular Diameter 2.9 cm M-MODE LA Ao Ratio MM 1.8 AV Cusp Separation MM 2.3 cm DOPPLER AV Peak Velocity 137.0 cm/s LVOT Peak Velocity 89.0 cm/s AV Area Cont Eq vti 3.3 cm squared AV Area Cont Eq pk 2.5 cm squared MV Peak Velocity 93.0 cm/s MV Area PHT 3.9 cm squared Mitral E to A Ratio 109.0 TR Peak Velocity 150.0 cm/s TR Peak Gradient 9.0 mmHg Right Atrial Pressure 3.0 mmHg Pulmonary Artery Systolic Pressu 12.0 mmHg PV Peak Velocity 83.0 cm/s FINDINGS Left Ventricle Diffuse hypokinesia left ventricular ejection fraction of 37%. Normal LV size Right Ventricle Appears to normal size and ejection fraction Right Atrium Mildly dilated right atrium Left Atrium Markedly dilated left atrium with a left atrial end-systolic volume index of 52 mm/m squared Mitral Valve Mild mitral valve regurgitation. Aortic Valve Thickened aortic valve. Tricuspid Valve Mild tricuspid valve regurgitation. Pulmonic Valve No gross abnormalities noted Pericardium Echo-free space, suggesting left-sided pleural effusion Aorta Normal aortic annulus size. IVC Inferior vena cava not visualized. CONCLUSIONS Diffuse hypokinesia left ventricular ejection fraction of 37%. Normal LV size. Markedly dilated left atrium with a left atrial end-systolic volume index of 52 mm/m squared. Mildly dilated right atrium. Mild mitral valve regurgitation. Thickened aortic valve. Mild tricuspid valve regurgitation. Estimated pulmonary artery peak systolic pressure, possibly within normal limits There is no pericardial effusion. Possible left-sided pleural effusion Compared to the study from 07/31/2024, there is worsening of the LV systolic function Dr Alejandro Gibson MD FAC (Electronically Signed) Final Date: 07 June 2024 19:19 S
[2024-06-07] MEDS: iohexol 350 mg/mL 500 mL Btl (per mL) IV (12:40)
[2024-06-07] MEDS: iohexol 350 mg/mL 500 mL Btl (per mL) PO (12:41)
== END | disposition home or self-care (01) ==
LOC: RAD 11:02
PROVIDERS: PCP Internal Medicine; Visit Provider Internal Medicine
DX: R18.8 Other ascites (principal); I51.89 Other ill-defined heart diseases; I51.7 Cardiomegaly; I35.0 Nonrheumatic aortic (valve) stenosis; K74.60 Unspecified cirrhosis of liver; K76.89 Other specified diseases of liver; I85.00 Esophageal varices without bleeding; I70.0 Atherosclerosis of aorta; M25.78 Osteophyte, vertebrae; M47.896 Other spondylosis, lumbar region
CPT/HCPCS: 74177; 93306; Q9967

== ENCOUNTER → 2024-07-18 15:32 | Outpatient (BNVA) | payer MEDICAID, SELFPAY | PROVIDERS: PCP Internal Medicine; Visit Provider Internal Medicine | DX: R07.9 Chest pain, unspecified (principal) | CPT/HCPCS: 93005; 99214 ==

== ENCOUNTER → 2024-08-30 15:47 | Outpatient (BNVA) | payer MEDICAID, SELFPAY | PROVIDERS: PCP Internal Medicine; Visit Provider Internal Medicine | DX: I25.10 Atherosclerotic heart disease of native coronary artery without angina pectoris (principal); I48.91 Unspecified atrial fibrillation; Z95.820 Peripheral vascular angioplasty status with implants and grafts; E78.5 Hyperlipidemia, unspecified; I11.0 Hypertensive heart disease with heart failure; I50.22 Chronic systolic (congestive) heart failure; N17.9 Acute kidney failure, unspecified; D61.818 Other pancytopenia; J44.9 Chronic obstructive pulmonary disease, unspecified; R18.8 Other ascites; Z72.0 Tobacco use; I25.2 Old myocardial infarction | CPT/HCPCS: 99213 ==

== ENCOUNTER → 2025-03-06 13:24 | Outpatient (BNVA) | payer MEDICAID, SELFPAY | PROVIDERS: PCP Internal Medicine; Visit Provider Internal Medicine | DX: I11.0 Hypertensive heart disease with heart failure (principal); I50.23 Acute on chronic systolic (congestive) heart failure; D61.818 Other pancytopenia; Z95.5 Presence of coronary angioplasty implant and graft; I25.2 Old myocardial infarction; Z87.828 Personal history of other (healed) physical injury and trauma; Z87.891 Personal history of nicotine dependence | CPT/HCPCS: 99213 ==

== ENCOUNTER 2025-07-29 12:59 | Emergency (ER) | payer MEDICAID, SELFPAY ==
--- OUTSIDE RECORDS SUMMARY | 2025-07-29 13:05 | XMS_ITS | Patient Health Record ---
Author Organization [facility] Address [address], [place] [id number] Care Team Providers Care Cafe Helper Name Role Phone Giuliana MATTSON, Qiana Primary Care Provider Unavailab Edd MATTSON, Mathieu Unavailable [phone] Allergies Allergen (clinical drug ingredient) Drug/Non Drug Allergy documented on EMR Reaction Allergy Type Onset Date Status Information temporarily unavailable None or not verifiable (as is Current Medications) (uncoded) Unknown Allergy Active Reason For Referral No Information Plan Of Treatment No Information Insurance Providers Payer Name Payer Address Payer Phone Subscriber Number Group Number Insured Name Patient Relationship to Insured Coverage Start Date Coverage End Date [place] [address] [place] [address] [phone] [id number] Trino Maddox Self - patient is the insured Medical (General) History Medical History History ICD Code None or not verifiable Surgical History Surgery Date(Month/Year) Cardiac stent placement
--- OUTSIDE RECORDS SUMMARY | 2025-07-29 13:05 | XMS_ITS | Patient Health Record ---
Author Organization [facility] Address [address] [place] [address] Care Team Providers Care Donor Services Coordinator Name Role Phone BairdEaston Primary Care Provider Allergies No Known Allergies Results Component Value Reference Range Flag Notes CBC w\ Auto Diff [id number] Reviewed date:03/15/2025 12:45:13 PM Interpretation: Performing Lab: Notes/Report: Diagnosis Description: Other ascites WBC 2.9 4.5-11.0 X10'3 LOW RBC 3.85 4.50-5.90 X10'6 LOW Hgb 12.0 13.5-17.5 G/DL LOW Hct 36.3 41.0-53.0 % LOW MCV 94.3 80.0-100.0 FL MCH 31.2 27.0-31.0 PG HI MCHC 33.1 31.0-37.0 G/DL Platelet 90 150-400 X10'3 LOW RDW-SD 45.9 35.0-49.0 FL RDW-CV 13.3 12.2-15.6 % MPV 10.6 9.2-12.0 FL Neutro Auto% 74.8 40.0-70.0 % HI Lymph Auto% 8.9 22.0-44.0 % LOW Fillmore Auto% 11.9 3.0-7.0 % HI Eos Auto% 3.1 2.0-4.0 % Baso Auto% 1.0 0.0-1.0 % Imm Gran% .3 .0-.4 % Neutro Abs 2.19 .80-7.70 Absolute Neutrophil Count 2190 NA Lymph Abs .26 .10-4.10 Fillmore Abs .35 .20-1.00 Eos Abs .09 .00-.40 Baso Abs .03 .00-.20 Imm Gran Abs .01 .00-.10 NRBC# .00 .00-.20 NRBC% .00 .00-.20 /100 intact WBC's Comprehensive Metabolic Pane l (CMP) [id number] Reviewed date:03/15/2025 12:45:21 PM Interpretation: Performing Lab: Notes/Report: Diagnosis Description: Other ascites Glucose Serum 94 71-110 MG/DL Testing p erformed at [facility], [address] [place] [address] [place] [address]. CLIA ID#: [id number] BUN 32 7-21 MG/DL HI Creat 1.82 .57-1.17 MG/DL HI R-rxhhjo-q-benzoquino ne imine (NAPQI) is a metabolite of acetaminophen, NAPQI concentrations of apparoximately 10 mg/L correlation to toxic levels of acetaminophen demonstrates a greater than or equil to 10% change in results. NAPQI concentrations greater than this may lead to falsely depressed results for patient samples. Use of this assay is not recommended for patients undergoing treatment with phenindione, due to the potential for falsely depressed results. GFR 40.8 NA Calculation pe rformed from GFR calculator provided by the [employer]. Glomerular Filtration rate(GRF) is the best overall index of kidney function. Normal GFR varies according to age,sex, body size, and declines with age. The [employer] recommends using the CKD-EPI Creatinine Equation(2020) to estimate GFR. BUN/Creat Ratio 17.6 12.0-20.0 % Total Protein 6.6 5.8-8.0 G/DL Albumin 4.2 3.2-4.8 G/DL Globulin 2.4 2.3-3.5 G/DL Alb/Glob 1.8 0.8-2.2 Calcium 9.8 8.7-10.4 MG/DL Sodium 141 136-145 MMOL/L Potassium 3.8 3.5-5.1 MMOL/L Chloride 103 98-107 MMOL/L CO2 27.4 20.0-31.0 MMOL/L Anion Gap 14 5-15 Alk Phos 111 46-116 Bili Total .5 .3-1.2 MG/DL Use of this assay is not recommended for patients undergoing treatment with eltrombopag due to the potential for falsely elevated results. AST/SGOT 21 15-37 UNIT/L ALT/SGPT 20 12-78 UNIT/L Osmo Serum,Calculated 299 280-300 MOSM/KG CT Abdomen, Pelvis w/ Contra [id number] Reviewed date:06/18/2025 02:59:56 PM Interpretation: Performing Lab: Notes/Report: CTA Chest PE Protocol-[id number] Reviewed date:10/04/2024 06:44:31 AM Interpretation: Performing Lab: Notes/Report: Radiology report is located at [facility] - [phone] FINAL REPORT CTA Chest PE Protocol Read Radiology report is located at [facility] - [phone] Read See Below For Report US Guidance for Paracentesis -[id number] Reviewed date:08/29/2024 09:20:01 AM Interpretation: Performing Lab: Notes/Report: US Venous Doppler Scan LE Le [id number] Reviewed date:05/17/2025 01:10:08 PM Interpretation: Performing Lab: Notes/Report: See Below For Report US Venous Doppler Scan LE Left Read See Below For Report US Venous Doppler Scan LE Le [id number] Reviewed date:05/17/2025 01:01:42 PM Interpretation: Performing Lab: Notes/Report: [id number] Chest 1V Reviewed date:10/03/2024 06:28:49 AM Interpretation: Performing Lab: Notes/Report: See Below For Report Chest 1V Read See Below For Report % Iron Saturation (Fe & TIBC )--[id number] Reviewed date:03/15/2025 12:45:05 PM Interpretation: Performing Lab: Notes/Report: Diagnosis Description: Other ascites Iron 66 65-175 MCG/DL Per Iron as say instruction for Use(IFU), patients treated with metal-binding drugs (e.g.deferoxamine) may have depressed iron values as chelated iron may not properly react in the iron assay. Testing was performed with this assay method. TIBC 290 250-450 NG/DL % Iron Saturation 23 20-50 % Paracentesis Reviewed date:10/17/2024 10:40:42 AM Interpretation: Performing Lab: Notes/Report: Paracentesis Reviewed date:10/03/2024 10:27:08 AM Interpretation: Performing Lab: Notes/Report: Paracentesis Reviewed date:09/20/2024 10:43:32 AM Interpretation: Performing Lab: Notes/Report: Paracentesis Reviewed date:09/05/2024 02:35:37 PM Interpretation: Performing Lab: Notes/Report: Reason For Referral Reason meralgia paresthetic a Diagnosis 1 Meralgia paresthetic a, left lower limb (G57.12) Referral Organization [facility] Referring Provider First Name Cem mills Referring Provider Last Name Brie Referring Provider Speciality Internal M edicine Referred Provider [facility] Referred Provider Specialty Physical The rapist General Notes Sahra Marquez 04:11:36 PM >[facility]12/2025 09:28:06 AM >GTS IS OON AND HE WOULD LIKE TO TRY [facility], Sahra Marquez 04/12/2025 11:28:33 AM >dfaxed [facility], Prem Yanet 04/19/2025 10:45:42 AM >PER RACHAEL THEY HAVE IT BUT STILL PROCESSING, Prem Yanet 05/02/2025 02:10:28 PM >PER RACHAEL IT IS STILL PENDING WITH INSURANCE, Prem Yanet 05/16/2025 10:25:53 AM >PER STANTON THEY DO HAVE IT, PT HAS NOT BEEN CALLED YET. I CALLED PT AND GAVE HIM THE NUMBER TO CALL AND SCHEDULE AND HE WILL SOMETIME TODAY AND HE WILL CALL AND LET US KNOW APPT TIME AND DATE, PremYanet 05/17/2025 11:22:32 AM >CARMEN CALLED AND SAID HE SPOKE TO THEM AND THEY TOLD HIM HIS INSURANCE WOULD ONLY PAY FOR IT IF IT WAS HIS BACK OR NECK.., THEY SENT CARMEN SOME PAPERWORK FOR ASSISTANCE TO SEE IF THAT WILL HELP HIM ANY. HE SAID HE WILL HAVE HIS BROTHER COME OVER AND HELP HIM FILL IT OUT WHEN HE RCVS IT Referral Priority Routine Medications Medication SIG (Take, Route, Frequency, Duration) Notes Start Date End Date Status Metoprolol Tartrate 25 mg Tablet TAKE ONE TABLET BY MOUTH TWICE DAILY; Duration: 90 Active Lisinopril 40 mg Tablet TAKE ONE TABLET BY MOUTH EVERY DAY; Duration: 90 Active Combivent Respimat 20-100 MCG/ACT Aerosol Solution inhale 1 PUFF into THE lungs EVERY 6 HOURS; Duration: 30 Active Spironolactone 100 mg Tablet TAKE ONE TABLET BY MOUTH DAILY; Duration: 30 Active Acetaminophen 325 MG Tablet 1 tablet as needed Orally every 4 hrs Active Potassium Chloride Wanda ER 20 mEq Tablet Extended Release Dissolve 1/2 TABLET in 4 ounces of liquid TWICE DAILY and drink with fluid pill, take with food; Duration: 30 Active Gabapentin 300 MG Capsule 1 capsule as n eeded Orally Three a day Active Isosorbide Mononitrate ER 60 mg Tablet Extended Release 24 Hour TAKE ONE TABLET BY MOUTH EVERY DAY; Duration: 90 Active Oxygen - Home Use 2 L NC PRN A ctive Aspirin Low Dose 81 mg Tablet Delayed Release TAKE ONE TABLET BY MOUTH EVERY DAY; Duration: 90 Active Fenofibrate Micronized 134 mg Capsule TAKE ONE CAPSULE BY MOUTH EVERY DAY; Duration: 90 Active Bumetanide 1 MG Tablet 1 tablet Orally O nce a day; Duration: 30 days Not-Taking Potassium Chloride ER 20 MEQ Tablet Extended Release 1/2 tablet with food Orally Twice a day Not-Taking Zonisamide 100 mg Capsule TAKE FOUR CAPS ULES BY MOUTH ONCE a day; Duration: 30 Active Allopurinol 100 mg Tablet TAKE ONE TABLE T BY MOUTH EVERY DAY; Duration: 30 Active Lyrica 150 MG Capsule 1 capsule Orally O nce a day; Duration: 30 days 06/29/2025 10/26/2025 Active Levothyroxine Sodium 50 mcg Tablet TAKE 1 TABLET BY MOUTH ONCE DAILY; Duration: 30 Active Furosemide 80 mg Tablet TAKE 1 TABLET BY MOUTH ONCE a day; Duration: 30 Active Immunizations Vaccine Route Administration Date Status Comme nts Flucelvax Trivalent, Syringe 0.5 mL, PF Unknown 025 Refused Flucelvax Trivalent, Syringe 0.5 mL, PF Unknown 025 Refused Social History Tobacco Use: Social History Observation Description Date Details (start date - stop date) Former Smoker NA - NA Social History Depression Screening Social Info Question Answer Notes depression screening findings Findings Negative (0 -4) 02/20/25 PHQ-9 Little interest or p todd in doing things Not at all Feeling down, depressed, or hopeless Not at all Trouble falling or staying asleep, or sleeping t oo much Several days Feeling tired or having little energy Several da ys Poor appetite or overeating Several days Feeling bad about yourself, or that you are a failure, or have let yourself or your family down Not at all Trouble concentrating on thi ngs, such as reading the newspaper or watching television Not at all Moving or speaking so slowly that other people could have noticed. Or the opposite ? being so fidgety or restless that you have been moving around a lot more than usual Not at all Thoughts that you would be b haily off , or of hurting yourself in some way Not at all Total Score 3 Interpretation Minimal Depression Drugs/Alcohol: Social Info Question Answer Notes Drugs Have you used drugs other than those for medical reasons in the past 12 months? No Drug/Alcohol: Social Info Question Answer Notes AUDIT-C (Standard) Did you have a drink containing alcohol in the past year? No Points 0 Interpretation Negative Tobacco Use: Social Info Question Answer Notes Tobacco Control (Standard) Tobacco use: Former smoker How long has it been since you last smoked? Greater than 10 years Additional Findings: Tobacco user Chews tobacco Section Notes: Dep & Tob - 08/29/24 CIME - Dep/tob - 02/20/25 CIME - Dep/tob - 02/20/25 CIME - Dep/tob - 02/20/25 CIME - Dep/tob - 02/20/25 CIME - Dep/tob - 02/20/25 Problems Problem Type SNOMED Code ICD Code Onset Dates Problem Status W/U Status Risk Notes Problem Information temporarily unavailable Meralgia paresthetica, left lower limb (G57.12) Active confirmed Problem Information temporarily unavailable Other ascites (R18.8) Active confirmed Problem Information temporarily unavailable Acute right ankle pain (M25.571) Active confirmed Problem Information temporarily unavailable Anasarca (R60.1) Active confirmed Problem Information temporarily unavailable Left anterior knee pain (M25.562) Active confirmed Problem Information temporarily unavailable Chronic a-fib (I48.20) Active confirmed Problem Information temporarily unavailable Wound cellulitis (L03.90) Active confirmed Problem Information temporarily unavailable Unilateral edema of lower extremity (R60.0) Active confirmed Problem Information temporarily unavailable Idiopathic cirrhosis (K74.60) Active confirmed Vital Signs Heart Rate 56 /min 05/22/2025 Temperature 98.2 degrees Fahrenheit 05/22/2025 Blood pressure diastolic 58 mm Hg 05/22/2025 Height-cm 167.64 cm 05/22/2025 Oximetry 100 % 05/22/2025 Weight-kg 76.2 kg 05/22/2025 Height 66 in 05/22/2025 Blood pressure systolic 90 mm Hg 05/22/2025 Weight 168 lbs 05/22/2025 BMI 27.11 kg/m2 05/22/2025 Encounters Encounter Location Date Provider Diagnosis [facility] [address] [address] 08/10/2024 Easton Baird Other ascites R18.8 and Anasarca R60.[address] [address] 08/16/2024 Easton Baird Other ascites R18.8 and Anasarca R60.1 [facility] [address] [address] 08/29/2024 Easton Baird Wound cellulitis L03.90 ; Other ascites R18.8 ; Idiopathic cirrhosis K74.60 ; Anasarca R60.1 and Depression screen Z13.[address] [address] 08/30/2024 Easton Baird Other ascites R18.8 and Anasarca R60.1 [facility] [address] [place] [id number] 09/07/2024 Easton Baird Left anterior knee pain M25.[address] [address] 09/13/2024 Easton Baird Other ascites R18.8 and Anasarca R60.[address] [address] 09/27/2024 Easton Baird Other ascites R18.8 and Anasarca R60.1 [facility] [address] [address] 10/03/2024 Easton Baird Idiopathic cirrhosis K74.[address] [address] 10/11/2024 Easton Baird Other ascites R18.8 [facility] [address] [place] [id number] 12/20/2024 Kikoopher Baird Other ascites R18.8 ; Anasarca R60.1 ; Idiopathic cirrhosis K74.60 and Depression screen Z13.31 [facility] [address] [place] [phone] 02/20/2025 Easton Baird Other ascites R18.8 ; Idiopathic cirrhosis K74.60 ; Left anterior knee pain M25.562 ; Edema R60.9 and Depression screen Z13.31 [facility] [address] [address] 04/02/2025 Easton Baird Idiopathic cirrhosis K74.60 ; Meralgia paresthetica, left lower limb G57.12 ; Depression screen Z13.31 ; Encounter for immunization Z23 and Immunization not carried out because of patient refusal Z28.21 [facility] [address] [place] [id number] 04/25/2025 Easton Baird Unilateral edema of lower extremity R60.0 ; Other ascites R18.8 ; Depression screen Z13.31 ; Encounter for immunization Z23 and Immunization not carried out because of patient refusal Z28.21 [facility] [address] [place] [phone] 05/07/2025 Easton Baird Other ascites R18.8 ; Idiopathic cirrhosis K74.60 ; Meralgia paresthetica, left lower limb G57.12 and Depression screen Z13.31 [facility] [address] [place] [id number] 05/22/2025 Easton Baird Right flank pain R10.9 ; Idiopathic cirrhosis K74.60 and Meralgia paresthetica, left lower limb G57.12 [facility] [address] [place] [id number] 09/11/2024 Easton Baird Other ascites R18.8 [facility] [address] [place] [address] 09/26/2024 Easton Baird Other ascites R18.8 and Anasarca R60.1 [facility] [address] [place] [address] 10/11/2024 Easton Baird Other ascites R18.8 [facility] [address] [place] [address] 02/27/2025 Easton Baird [facility] [address] [place] [address] 03/22/2025 Easton Baird [facility] [address] [place] [address] 05/30/2025 Easton Baird [facility] [address] [place] [address] 06/06/2025 Easton Baird [facility] [address] [place] [address] 06/28/2025 Easton Baird Meralgia paresthetica, left lower limb G57.12 Assessments Encounter Date Diagnosis (ICD Code) Assessment Notes Treatment Notes Treatment Clinical Notes Section Notes 08/10/2024 Other ascites (ICD-10 - R18.8) --x- to be completed at [facility] ---to be completed at [facility] ---to be completed at [facility] ---to be completed at [facility] 08/29/2024 Wound cellulitis (ICD-10 - L03.90) 08/29/2024 Other ascites (ICD-10 - R18.8) 08/30/2024 Other ascites (ICD-10 - R18.8) 08/30/2024 Anasarca (ICD-10 - R60.1) 09/07/2024 Left anterior knee pain (ICD-10 - M25.562) 09/11/2024 Other ascites (ICD-10 - R18.8) 09/13/2024 Other ascites (ICD-10 - R18.8) 09/26/2024 Other ascites (ICD-10 - R18.8) 09/26/2024 Anasarca (ICD-10 - R60.1) 09/27/2024 Other ascites (ICD-10 - R18.8) 10/03/2024 Idiopathic cirrhosis (ICD-10 - K74.60) 10/11/2024 Other ascites (ICD-10 - R18.8) 10/11/2024 Other ascites (ICD-10 - R18.8) 12/20/2024 Other ascites (ICD-10 - R18.8) 02/20/2025 Other ascites (ICD-10 - R18.8) 02/20/2025 Idiopathic cirrhosis (ICD-10 - K74.60) 04/02/2025 Idiopathic cirrhosis (ICD-10 - K74.60) 04/02/2025 Meralgia paresthetica, left lower limb (ICD-10 - G57.12) 04/25/2025 Unilateral edema of lower extremity (ICD-10 - R60.0) 05/07/2025 Other ascites (ICD-10 - R18.8) Doing well. 08/16/2024 Other ascites (ICD-10 - R18.8) --x- to be completed at [facility] ---to be completed at [facility] ---to be completed at [facility] ---to be completed at [facility] 05/22/2025 Right flank pain (ICD-10 - R10.9) 06/28/2025 Meralgia paresthetica, left lower limb (ICD-10 - G57.12) 05/22/2025 Idiopathic cirrhosis (ICD-10 - K74.60) 08/16/2024 Anasarca (ICD-10 - R60.1) 05/07/2025 Idiopathic cirrhosis (ICD-10 - K74.60) Stable 04/25/2025 Other ascites (ICD-10 - R18.8) Doing really well. 04/02/2025 Depression screen (ICD-10 - Z13.31) 02/20/2025 Left anterior knee pain (ICD-10 - M25.562) 12/20/2024 Anasarca (ICD-10 - R60.1) 09/27/2024 Anasarca (ICD-10 - R60.1) 09/13/2024 Anasarca (ICD-10 - R60.1) 08/29/2024 Idiopathic cirrhosis (ICD-10 - K74.60) 08/10/2024 Anasarca (ICD-10 - R60.1) 08/29/2024 Anasarca (ICD-10 - R60.1) 12/20/2024 Idiopathic cirrhosis (ICD-10 - K74.60) 02/20/2025 Edema (ICD-10 - R60.9) 04/02/2025 Encounter for immunization (ICD-10 - Z23) 04/25/2025 Depression screen (ICD-10 - Z13.31) 05/07/2025 Meralgia paresthetica, left lower limb (ICD-10 - G57.12) 05/22/2025 Meralgia paresthetica, left lower limb (ICD-10 - G57.12) 05/07/2025 Depression screen (ICD-10 - Z13.31) 04/25/2025 Encounter for immunization (ICD-10 - Z23) 04/02/2025 Immunization not carried out because of patient refusal (ICD-10 - Z28.21) 02/20/2025 Depression screen (ICD-10 - Z13.31) 12/20/2024 Depression screen (ICD-10 - Z13.31) 08/29/2024 Depression screen (ICD-10 - Z13.31) 04/25/2025 Immunization not carried out because of patient refusal (ICD-10 - Z28.21) 08/16/2024 Other see scanned document from [facility] in patients documents. 08/30/2024 Other see scanned document from [facility] in patients documents. 09/13/2024 Other see scanned document from [facility] in patients documents. 09/27/2024 Other see scanned document from [facility] in patients documents. 10/11/2024 Other see scanned document from [facility] in patients documents. 02/20/2025 Other Venipuncture performed by Sahra Marquez. Right arm/hand. One attempt. Pt tolerated well, bleeding controlled with light dressing. Lab sent to [facility] via director of field coordination. Plan Of Treatment Next Appt Details Provider Name:Easton Baird, 09/05/2025 01:00:00 PM, [address] [facility] [address], [place], [address], Provider Name:Easton Baird, 09/19/2025 01:20:00 PM, [address] [facility] [address], [place], [address], Insurance Providers Payer Name Payer Address Payer Phone Subscriber Number Group Number Insured Name Patient Relationship to Insured Coverage Start Date Coverage End Date [place] Medicaid [address] [place] [address] [id number] CARMEN BROWN Self - patient is the insured Medications Administered Medication Instructions Date of Administration Dosage Notes Furosemide 40mg 10/03/2024 Rocephin 08/29/2024 1 g Medical (General) History Medical History History ICD Code Heart attack hypertension hernia Surgical History Surgery Date(Month/Year) Stents x 3 cataract removal 2015
--- OUTSIDE RECORDS SUMMARY | 2025-07-29 13:06 | XMS_ITS | Clinical Summary ---
Author Organization [facility] Address [address] [facility] [address] [place] [address] Phone Care Team Providers Care Insurance Processing Clerk Name Role Phone Unavailable Primary Care Provider Unavailabl e Allergies No known active allergies Encounters Date Type Department Care Team Description 06/05/2025 External Device Data [facility] ABSTRACTION Provider, Abstract 06/05/2025 External Device Data [facility] ABSTRACTION Provider, Abstract 06/05/2025 External Device Data [facility] ABSTRA[facility] Provider, Abstract 05/30/2025 10:29 AM CDT - 05/30/2025 11:59 PM CDT Hospital Encounter [facility] [place] [address] [facility] [address] [place] [phone] Easton Baird MD Discharge Disposition: Home or Self Care 05/23/2025 Orders Only [facility] Admitting [address] [facility] [facility] [address] [place] [phone] Easton Baird MD Right flank pain (Primary Dx) from Last 3 Months Social History Tobacco Use Types Packs/Day Years Used Date Smoking Tobacco: Never Assessed Sex and Gender Information Value Date Recorded Sex Assigned at Not on file Legal Sex Male 11:35 AM CDT Gender Identity Not on file Sexual Orientation Not on file Plan of Treatment Health Maintenance Due Date Last Done Comments Pre-Diabetes and Diabetes Screening 1960 DTAP/TDAP/TD VACCINES (1 - Tdap) 1979 COLORECTAL SCREENING 2005 Colorectal Cancer Screening 2005 FIT-DNA Q 3 years 2005 FIT/FOBT Q 1 year 2005 Flex Sig/CT Colonography Q 5 years 2005 ZOSTER VACCINE (1 of 2) 2010 RSV VACCINE (60+ or ) (1 - Risk 60-74 years 1-dose series) 2020 INFLUENZA VACCINE (#1) 2025 Procedures Procedure Name Priority Date/Time Associated Diagnosis Comments CT ABDOMEN PELVIS W CONTRAST Routine 05/30/2025 12:15 PM CDT Right flank pain CREATININE Stat 05/30/2025 11:27 AM CDT from Last 3 Months Results * CT ABDOMEN PELVIS W CONTRAST (05/30/2025 12:15 PM CDT) Anatomical Region Laterality Modality Abdomen Computed Tomogra phy 05/30/2025 11:5 7 AM CDT Impressions 05/30/2025 1:09 PM CDT IMPRESSION: Please see below. Exam: CT ABDOMEN PELVIS W CONTRAST Date/Time of Exam: 05/30/2025 12:15 PM Reason For Exam: RIGHT FLANK PAIN. Diagnosis: Right flank pain. Technique: 5 mm volumetric acquisition with oral and intravenous contrast. Contrast: IOPAMIDOL 61 % INTRAVENOUS SOLUTION (SINGLE USE VIAL) Given:89 mL Comparison: None Findings: Partially visualized chest: Small sliding type hiatal hernia with extensive gastroesophageal varices. Liver: Cirrhosis. Approximately 2.4 x 1.9 cm indeterminate hypodensity in the right hepatic lobe image 70 series 3. Gallbladder: Normal. Pancreas: Normal. Spleen: Splenomegaly measuring 12.2 cm in craniocaudal extent. Adrenal glands: Normal. Kidneys and ureters: No hydronephrosis. No parenchymal abnormality. 2.0 cm exophytic cortical cyst lower pole right kidney. Urinary bladder: Unremarkable. Reproductive organs: Unremarkable. GI tract: Fusiform wall thickening of the ascending and descending colon present. The unopacified bowel is otherwise unremarkable. Appendix: There is non visualization of a normal appearing appendix. No pericecal inflammatory change is present. Free fluid: Small to moderate amount of abdominal and pelvic ascites present. Negative for free air. Lymph nodes: No lymphadenopathy. Vasculature: Eccentric intraluminal filling defect of the portal vein is present with enlargement of the main portal vein present consistent with underlying portal venous hypertension. Body wall: Tiny fat-containing umbilical hernia. Osseous structures: No acute osseous abnormality. No suspicious lesions. IMPRESSION: 1. Constellation of CT findings consistent with cirrhosis with portal venous hypertension with resultant portal venous collateralization and mild splenomegaly as described above. 2. Incidental note of nonocclusive partial portal vein thrombosis. 3. Indeterminate poorly marginated hypodensity of the right hepatic lobe. Further characterization of this lesion with hepatic MRI with and without contrast recommended. 4. Fusiform wall thickening of the ascending and descending colon, nonspecific for inflammatory/infectious versus ischemic colitis. Differential diagnosis would include portal hypertensive colopathy. 5. Abdominal and pelvic ascites. 6. Right renal cortical cysts. 7. The findings and/or imaging diagnoses in the above impression have been deemed a critical result by the interpreting radiologist and immediately reported as such to the ordering physician or appropriate licensed caregiver in accordance with current radiology department policy. Narrative Procedure Note Valencia Lewis MD - 05/30/2025 IMPRESSION: Please see below. Exam: CT ABDOMEN PELVIS W CONTRAST Date/Time of Exam: 05/30/2025 12:15 PM Reason For Exam: RIGHT FLANK PAIN. Diagnosis: Right flank pain. Technique: 5 mm volumetric acquisition with oral and intravenous contrast. Contrast: IOPAMIDOL 61 % INTRAVENOUS SOLUTION (SINGLE USE VIAL) Given:89 mL Comparison: None Findings: Partially visualized chest: Small sliding type hiatal hernia with extensive gastroesophageal varices. Liver: Cirrhosis. Approximately 2.4 x 1.9 cm indeterminate hypodensity in the right hepatic lobe image 70 series 3. Gallbladder: Normal. Pancreas: Normal. Spleen: Splenomegaly measuring 12.2 cm in craniocaudal extent. Adrenal glands: Normal. Kidneys and ureters: No hydronephrosis. No parenchymal abnormality. 2.0 cm exophytic cortical cyst lower pole right kidney. Urinary bladder: Unremarkable. Reproductive organs: Unremarkable. GI tract: Fusiform wall thickening of the ascending and descending colon present. The unopacified bowel is otherwise unremarkable. Appendix: There is non visualization of a normal appearing appendix. No pericecal inflammatory change is present. Free fluid: Small to moderate amount of abdominal and pelvic ascites present. Negative for free air. Lymph nodes: No lymphadenopathy. Vasculature: Eccentric intraluminal filling defect of the portal vein is present with enlargement of the main portal vein present consistent with underlying portal venous hypertension. Body wall: Tiny fat-containing umbilical hernia. Osseous structures: No acute osseous abnormality. No suspicious lesions. IMPRESSION: 1. Constellation of CT findings consistent with cirrhosis with portal venous hypertension with resultant portal venous collateralization and mild splenomegaly as described above. 2. Incidental note of nonocclusive partial portal vein thrombosis. 3. Indeterminate poorly marginated hypodensity of the right hepatic lobe. Further characterization of this lesion with hepatic MRI with and without contrast recommended. 4. Fusiform wall thickening of the ascending and descending colon, nonspecific for inflammatory/infectious versus ischemic colitis. Differential diagnosis would include portal hypertensive colopathy. 5. Abdominal and pelvic ascites. 6. Right renal cortical cysts. 7. The findings and/or imaging diagnoses in the above impression have been deemed a critical result by the interpreting radiologist and immediately reported as such to the ordering physician or appropriate licensed caregiver in accordance with current radiology department policy. Easton Baird MD CT ORDERABLES Final R esult * (ABNORMAL) CREATININE (05/30/2025 11:27 AM CDT) CREATININE 2.08(H) 0.67 - 1.17 mg/dL 05/30/2025 11:44 AM CDT [facility] GFR 35(L) >=60 mL/min/1.7 3 sq meter 05/30/2025 11:44 AM CDT [facility] Comment:eGFR calculated with 2020 CKD-EPI equation. Vegetarian diet, extremely high or low muscle mass, and may affect results. Cystatin C with Glomerular Filtration Rate is a suitable alternative for these patients. Blood BLOOD SPECIMEN / Unknown Collection / Unknown 05/30/2025 11:27 AM CDT 05/30/2025 11:30 AM CDT External Provider Mtnv CHEMISTRY ORDERABLES Tianna l Result [facility] CLIA # [id number] [address] [place] [id number] from Last 3 Months Insurance [place]ICAID [place]
[2025-07-29 13:15] VITALS: BP 95/62; PULSE 92; RESP 16; TEMP 36.9; O2SAT 100; BMI 32.5
--- NOTE | 2025-07-29 13:41 | CTR_ITS ---
PROCEDURE INFORMATION: Exam: CT Abdomen And Pelvis Without Contrast Exam date and time: 07/29/2025 2:02 PM Age: 64 years old Clinical indication: Abdominal pain; Flank; Right; Additional info: Flank pain TECHNIQUE: Imaging protocol: Computed tomography of the abdomen and pelvis without contrast. Radiation optimization: All CT scans at this facility use at least one of these dose optimization techniques: automated exposure control; mA and/or kV adjustment per patient size (includes targeted exams where dose is matched to clinical indication); or iterative reconstruction. COMPARISON: CT abdomen pelvis w con* [id number] 06/07/2024 12:28 PM RADIATION DOSE METRICS: Total DLP (mGy-cm): 604.46 FINDINGS: Lungs: Unchanged calcified granuloma right lung base. Otherwise, unremarkable. Heart: Unchanged moderate cardiomegaly. Liver: Unchanged shape of the liver suggesting cirrhosis. Otherwise, unremarkable. Gallbladder and biliary ducts: Normal. No calcified stones. No ductal dilation. Pancreas: Normal. No ductal dilation. Spleen: Slightly increased moderate splenomegaly. Otherwise, unremarkable spleen. Adrenal glands: Normal. No mass. Kidneys and ureters: Unchanged small right renal cyst needs no follow-up. Otherwise, unremarkable. Stomach and bowel: Unremarkable. No obstruction. No mucosal thickening. Appendix: No evidence of appendicitis. Intraperitoneal space: Considerable decrease in small amount of free intraperitoneal fluid. No free air. Vasculature: Unchanged varices suggesting portal hypertension. Unchanged tiny amount of arterial calcification. Otherwise, unremarkable. Lymph nodes: Unremarkable. No enlarged lymph nodes. Urinary bladder: Unremarkable. Reproductive: Unremarkable. Bones/joints: Unchanged mild scoliosis. Unchanged mild and moderate multilevel spondylosis. Otherwise, unremarkable. Soft tissues: Large amount of bilateral gynecomastia. Otherwise, unremarkable visualized body wall. Otherwise, unremarkable soft tissues. CT/CT kidney stone [id number] IMPRESSION: 1. Slightly increased moderate splenomegaly. 2. Large amount of bilateral gynecomastia. 3. Considerable decrease in small amount of free intraperitoneal fluid. 4. No other acute findings. 5. Additional details as above. Unchanged.
--- NOTE | 2025-07-29 13:44 | W.ED.MALEGU ---
HPI - Male Genitourinary General: Chief complaint: Urogenital-Male Stated complaint: lower back and R side pain Time Seen by Provider: 07/29/25 13:38 Source: patient Mode of arrival: ambulatory Limitations: no limitations History of Present Illness: 64-year-old male states that he has been having right sided flank and lower back pain over the last 5 to 6 days. States been a sharp pain seems to be worse with movements denies any pain to palpation. He denies any fever denies any dysuria denies any vomiting or diarrhea. Associated symptoms: Deny dysuria, nausea or vomiting Related Data Home Medications ?Medication ?Instructions ?Recorded ?Confirmed aspirin 81 mg tablet,delayed 81 mg PO DAILY 01/22/20 03/06/25 release (Aspir-) fenofibrate micronized 134 mg 134 mg PO DAILY 01/22/20 03/06/25 capsule levothyroxine 25 mcg capsule 25 mcg PO DAILY 01/22/20 03/06/25 gabapentin 100 mg capsule 100 mg PO TID PRN 07/18/24 03/06/25 potassium chloride 10 mEq oral 10 meq PO DAILY 07/18/24 03/06/25 packet isosorbide mononitrate 10 mg tablet 10 mg PO BID 08/30/24 03/06/25 bumetanide 1 mg tablet 1 mg PO DAILY 03/06/25 03/06/25 furosemide 80 mg tablet 80 mg PO DAILY 03/06/25 03/06/25 Previous Rx's ?Medication ?Instructions ?Recorded nitroglycerin 0.4 mg sublingual 0.4 mg sublingual Q5M PRN chest 07/24/20 tablet (Nitrostat) pain #60 tabs methocarbamol 750 mg tablet 750 mg PO Q6H PRN spasms #20 tabs 07/29/25 naproxen 500 mg tablet (Naprosyn) 500 mg PO BID PRN pain #20 tabs 07/29/25 Allergies Allergy/AdvReac Type Severity Reaction Status Date / Time No Known Allergies Allergy Verified 03/06/25 13:34 Review of Systems Const: Denies: fever(s), chills, body aches or change in appetite ENMT: Denies: throat pain or dental pain Card: Denies: chest pain Resp: Denies: dyspnea GI: Denies: abdominal pain, nausea, vomiting or diarrhea : Reports: flank pain; Denies: dysuria Musc: Reports: back pain; Denies: neck pain Skin/Breast: Denies: rash Neuro: Denies: headache(s) PFSH ED PFSH: Medical History Tobacco abuse Ascites Systolic CHF 01/26/2024: LVEF 40 to 45% Acute congestive heart failure HTN (hypertension) ASHD (arteriosclerotic heart disease) Myocardial infarction Dyslipidemia COPD (chronic obstructive pulmonary disease) Surgical History S/P angioplasty with stent Family History Mother Hypertension Other CAD (coronary artery disease) Social History Smoking and tobacco/nicotine status: former use of tobacco/nicotine Alcohol intake: former Household members: significant other Marital status: Life Partner service: No Current occupational status: disabled Physical Exam Const: COMMON NORMALS: no acute distress, patient oriented x3 and healthy appearing HENMT: COMMON NORMALS: normocephalic and atraumatic HEAD & SCALP: normocephalic and atraumatic Eye: COMMON NORMALS: conjunctivae normal CONJUNCTIVA: Yes conjunctivae normal Neck/C-Spine: COMMON NORMALS: full ROM and supple Chest: COMMONS NORMALS: normal inspection of the chest Resp: COMMON NORMALS: normal respiratory effort, No retractions, No use of accessory muscles and clear to auscultation bilaterally AUSCULTATION: clear to auscultation bilaterally Cardio: COMMON NORMALS: regular rate, regular rhythm and No murmurs present (Cardio) RATE: regular rate RHYTHM: regular rhythm GI: COMMON NORMALS: Normal to inspection, nondistended, normoactive bowel sounds present, Soft to palpation, non-tender and no masses PALPATION: Yes Soft to palpation Extremity: COMMON NORMALS: normal to inspection and full ROM Neuro: COMMON NORMALS: patient oriented x3, moves all extremities and no focal motor deficits Psych: COMMON NORMALS: mental status grossly normal, Normal thought process present and cooperative THOUGHT PROCESS: Normal thought process present Skin: COMMON NORMALS: no rashes or lesions noted and no wounds GENERAL SKIN EXAM: no rashes or lesions noted Course Vital Signs: Vital signs: Vital Signs Temperature 98.4 F 07/29/25 13:15 Pulse Rate 84 07/29/25 14:19 Respiratory Rate 16 07/29/25 13:15 Blood Pressure 106/71 07/29/25 14:19 Pulse Oximetry 97 07/29/25 14:19 Oxygen Delivery Me thod Room Air 07/29/25 14:19 MDM - Male Medical Decision Making Patient presents for back and flank pain is likely muscular in nature imaging blood work here is all normal he has no signs of cord compression or epidural abscess he is to follow-up with his PCP return if worsening he understands agrees to plan. Medical Records I reviewed the patient's medical records. Lab Data I reviewed the patient's lab results. 07/29/25 14:29 07/29/25 14:29 Radiology Impressions Abdomen/Pelvis CT 07/29/25 13:41 IMPRESSION: 1. Slightly increased moderate splenomegaly. 2. Large amount of bilateral gynecomastia. 3. Considerable decrease in small amount of free intraperitoneal fluid. 4. No other acute findings. 5. Additional details as above. Unchanged. Laboratory Results WBC 2.69 10^3/uL (3.29-11.43) L 07/29/25 14:29 RBC 3.67 10^6/uL (3.85-5.65) L 07/29/25 14:29 Hgb 11.60 g/dL (11.27-16.99) 07/29/25 14:29 Hct 34.5 % (37-53) L 07/29/25 14:29 MCV 94.0 fl (82-101) 07/29/25 14:29 MCH 31.6 pg (27-33) 07/29/25 14:29 MCHC 33.6 g/dL (30-55) 07/29/25 14:29 RDW 12.9 % (12.1-15.1) 07/29/25 14:29 Plt Count 50 10^3/cmm (157-399) L 07/29/25 14:29 MPV 10.5 fL (7.4-10.4) H 07/29/25 14:29 Neut % (Auto) 61.4 % 07/29/25 14:29 Lymph % (Auto) 17.1 % 07/29/25 14:29 [place] % (Auto) 15.2 % 07/29/25 14:29 Eos % (Auto) 4.8 % 07/29/25 14:29 Baso % (Auto) 1.1 % 07/29/25 14:29 Neut # (Auto) 1.65 10^3/uL (1.8-7.7) L 07/29/25 14:29 Lymph # (Auto) 0.5 10^3/uL (0.8-4.8) L 07/29/25 14:29 [place] # (Auto) 0.4 10^3/uL (0.2-0.9) 07/29/25 14:29 Eos # (Auto) 0.1 10^3/uL (0.0-0.8) 07/29/25 14: Baso # (Auto) 0.0 10^3/uL (0.0-0.1) 07/29/25 14: Nucleated RBC % (auto) 0 % 07/29/25 14: Nucleated RBCs # 0.0 /100WBC 07/29/25 14:29 Sodium 139 mmol/L (136-145) 07/29/25 14:29 Potassium 3.7 mmol/L (3.5-5.1) 07/29/25 14:29 Chloride 101 mmol/L (98-107) 07/29/25 14:29 Carbon Dioxide 22 mmol/L (22-29) 07/29/25 14:29 Anion Gap 19.7 (5-19) H 07/29/25 14:29 BUN 25 mg/dL (8-23) H 07/29/25 14:29 Creatinine 2.1 mg/dL (0.7-1.2) H 07/29/25 14:29 GFR Calculation 32.0 mL/min (90-130) L 07/29/25 14:29 Glucose 95 mg/dL (65-115) 07/29/25 14:29 Calculated Osmolality 292 mOsm/kg (285-295) 07/29/25 14:29 Calcium 9.2 mg/dL (8.5-10.5) 07/29/25 14:29 Total Bilirubin 1.2 mg/dL (0.15-1.2) 07/29/25 14:29 AST 15 U/L (0-40) 07/29/25 14:29 ALT 13 U/L (0-41) 07/29/25 14:29 Alkaline Phosphatase 91 U/L (40-130) 07/29/25 14:29 Total Protein 6.3 g/dL (6.6-8.7) L 07/29/25 14:29 Albumin 3.6 g/dL (3.5-5.2) 07/29/25 14:29 Globulin 2.7 g/dL (1.3-4.6) 07/29/25 14:29 Lipase 47 U/L (13-60) 07/29/25 14:29 Urine Color Yellow (Yellow) 07/29/25 15:00 Urine Appearance Clear (CLEAR) 07/29/25 15:00 Urine pH 5.5 (5-7) 07/29/25 15:00 Ur Specific [place] 1.017 (1.005-1.030) 07/29/25 15:00 Urine Protein Negative (Negative) 07/29/25 15:00 Urine Glucose (UA) Negative (Normal) 07/29/25 15:00 Urine Ketones Negative (Negative) 07/29/25 15:00 Urine Blood Negative (Negative) 07/29/25 15:00 Urine Nitrate Negative (Negative) 07/29/25 15:00 Urine Bilirubin Negative (Negative) 07/29/25 15:00 Urine Urobilinogen 1.0 mg/dL (Negative) 07/29/25 15:00 Ur Leukocyte Esterase Negative (Negative) 07/29/25 15:00 Urine RBC 0-2 /hpf (0-2) 07/29/25 15:00 Urine WBC 0-5 /hpf (0-5) 07/29/25 15:00 Ur Squamous Epith Cells 0-5 /hpf (0-5) 07/29/25 15:00 Amorphous Sediment Not Reportable 07/29/25 15:00 Urine Bacteria None seen /hpf (NONE) 07/29/25 15:00 Hyaline Casts 2.87 /lpf 07/29/25 15:00 All radiology interpretation(s) finalized by discharge Discharge Plan Discharge Patient Disposition: Home Clinical Impression: Back pain Condition: Stable Prescriptions: New methocarbamol 750 mg tablet 750 mg PO Q6H PRN (Reason: spasms) Qty: 20 0RF naproxen [Naprosyn] 500 mg tablet 500 mg PO BID PRN (Reason: pain) Qty: 20 0RF No Action nitroglycerin [Nitrostat] 0.4 mg tablet, sublingual 0.4 mg SUBLINGUAL Q5M PRN (Reason: chest pain) Qty: 60 2RF fenofibrate micronized 134 mg capsule 134 mg PO DAILY levothyroxine 25 mcg capsule 25 mcg PO DAILY aspirin [Aspir-81] 81 mg tablet,delayed release (DR/EC) 81 mg PO DAILY gabapentin 100 mg capsule 100 mg PO TID PRN isosorbide mononitrate 10 mg tablet 10 mg PO BID Rx Instructions: give doses 7 hrs apart furosemide 80 mg tablet 80 mg PO DAILY bumetanide 1 mg tablet 1 mg PO DAILY potassium chloride 10 mEq packet 10 meq PO DAILY Discharge Orders: Discharge ED (Routine); Ordered 07/29/25 Ordered By: Tigist Payne Referrals: Neo Baird MD [Primary Care Provider, Internal Medicine] - 4-7 days Discharge Diet: Advance as tolerated Discharge Activity: Resume usual activity Patient Instructions: Back Pain (ED) Print Language: Palauan Coding Level of Care Code ED Dependency Case Manager for Eliza Riggs
--- NOTE | 2025-07-29 14:17 | PC.NURSE ---
patient refused iv and reports he is wanting to just go home with medications. educated on need for iv. refused again.
[2025-07-29 14:19] VITALS: BP 106/71; PULSE 84; O2SAT 97
[2025-07-29 14:38] LABS: Hematocrit 34.5 % (37-53); Hemoglobin 11.60 g/dL (11.27-16.99); Mean Corpuscular HGB Conc 33.6 g/dL (30-55); Mean Corpuscular Hemoglobin 31.6 pg (27-33); Mean Corpuscular Volume 94.0 fl (82-101); Nucleated Red Blood Cells % 0 %; Platelet Count 50 10^3/cmm (157-399); Red Blood Count 3.67 10^6/uL (3.85-5.65); White Blood Count 2.69 10^3/uL (3.29-11.43)
[2025-07-29 14:53] LABS: Alanine Aminotransferase 13 U/L (0-41); Albumin Level 3.6 g/dL (3.5-5.2); Alkaline Phosphatase 91 U/L (40-130); Anion Gap 19.7 (5-19); Aspartate Amino Transferase 15 U/L (0-40); Blood Urea Nitrogen 25 mg/dL (8-23); Calcium 9.2 mg/dL (8.5-10.5); Carbon Dioxide 22 mmol/L (22-29); Chloride 101 mmol/L (98-107); Creatinine Clr Calc Pharmacy 30.3095; Globulin 2.7 g/dL (1.3-4.6); Glucose 95 mg/dL (65-115); Lipase 47 U/L (13-60); Osmolality Calculated 292 mOsm/kg (285-295); Potassium 3.7 mmol/L (3.5-5.1); Sodium 139 mmol/L (136-145); Total Protein 6.3 g/dL (6.6-8.7)
[2025-07-29 15:20] LABS: Glucose Urine UA Negative (Normal); Nitrate Urine Negative (Negative); Specific Gravity, Urine 1.017 (1.005-1.030)
[2025-07-29 15:25] LABS: Add Urine Microscopic? YES
[2025-07-29] MEDS: HYDROcodone-acetaminophen 5-325 mg Tablet 1 TAB PO (15:25)
== END 2025-07-29 15:49 | disposition home or self-care (01) ==
PROVIDERS: Emergency Provider Emergency Medicine; PCP Internal Medicine
DX: M54.50 Low back pain, unspecified (principal)
CPT/HCPCS: 74176; 80053; 81001; 83690; 85025; 99284; J9999

== ENCOUNTER → 2025-09-03 15:45 | Outpatient (BNVA) | payer MEDICAID, SELFPAY | PROVIDERS: PCP Internal Medicine; Visit Provider Nurse Practitioner Family | DX: I48.20 Chronic atrial fibrillation, unspecified (principal); Z79.01 Long term (current) use of anticoagulants; Z79.82 Long term (current) use of aspirin; I11.0 Hypertensive heart disease with heart failure; I50.20 Unspecified systolic (congestive) heart failure; I25.10 Atherosclerotic heart disease of native coronary artery without angina pectoris; E78.5 Hyperlipidemia, unspecified; J44.9 Chronic obstructive pulmonary disease, unspecified; Z87.891 Personal history of nicotine dependence; I25.2 Old myocardial infarction; I48.91 Unspecified atrial fibrillation | CPT/HCPCS: 93005; 99214 ==

== ENCOUNTER 2025-10-06 10:16 | Emergency (ER) | payer MEDICAID, SELFPAY ==
--- OUTSIDE RECORDS SUMMARY | 2025-09-12 09:40 | XMS_ITS ---
Author Organization [facility] Address [address] [place] [address] Care Team Providers Care Permit Agent Name Role Phone Easton Baird Primary Care Provider REASON FOR VISIT 4 MONTH F/U Encounters Encounter Location Date Provider Diagnosis [facility] [address] [facility] [address] [place] [address] 09/12/2025 Easton Baird Plan Of Treatment Next Appt Details Provider Name:Easton Baird, 10/11/2025 03:00:00 PM, [address] [facility] [address], [place], [address], Provider Name:Easton Baird, 01/02/2026 01:00:00 PM, [address] [place] [address], [place], [address], Progress Notes * CARMEN BROWNDOB: [birth year] (64 yo M)Acc No.[id number]:09/12/2025 Progress Notes Patient: CARMEN GREGG Provider: Dave Baird MD :1960 A ge:64 Y S ex:Male Date:09/12/2025 Address:[address] [place] [id number] Subjective: * Chief Complaints: * 4 MONTH F/U Care Plan Details* * Electronic signature of Johnson Baird MD on 10/06/2025 at 10:23 AM 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 Sign off status: Pending * Provider: Dave Baird MD Date: 1 Generated for Uvaldo diaz/Paradise/Mineitting on: 1 12/06/2024 10:23 AM 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
--- OUTSIDE RECORDS SUMMARY | 2025-10-04 09:39 | XMS_ITS ---
Author Organization [facility] Address [address] [place] [address] Care Team Providers Care Marketing Support Assistant Name Role Phone Easton Baird Primary Care Provider REASON FOR VISIT historical data Immunizations Vaccine Route Administration Date Status Comme nts Flucelvax Trivalent, Syringe 0.5 mL, PF Unknown 025 Refused Encounters Encounter Location Date Provider Diagnosis [facility] [address] [facility] [address] [place] [address] 10/04/2025 Easton Baird Encounter for immunization Z23 and Immunization not carried out because of patient refusal Z28.21 Assessments Encounter Date Diagnosis (ICD Code) Assessment Notes Treatment Notes Treatment Clinical Notes Section Notes 10/04/2025 Encounter for immunization (ICD-10 - Z23) 10/04/2025 Immunization not carried out because of patient refusal (ICD-10 - Z28.21) Plan Of Treatment Next Appt Details Provider Name:Easton Baird, 10/11/2025 03:00:00 PM, [address], [address], Provider Name:Easton Baird, 01/02/2026 01:00:00 PM, [address], [address], Progress Notes * STEPHANIECARMENDOB: [birth year] (64 yo M)Acc No.[id number]:10/04/2025 Patient: CARMEN GREGG :1960 A ge:64 Y S ex:Male Address:[address] [place] [address], [phone] Subjective: * Chief Complaints: * H istorical data Assessment: * Assessment: 1. E ncounter for immunization - Z23 2 . I mmunization not carried out because of patient refusal - Z28.21 Plan: * Immunizations: Flucelvax Trivalent, Syringe 0.5 mL, PF (Not administered - Refused: Patient decision) (Encounter for immunization, Immunization not carried out because of patient refusal) * Procedure Codes: G 8483 FLU IMM NO ORD/ADMIN DOC MELISSA Billing Information: * Procedure Codes: G8483 FLU IMM NO ORD/ADMIN DOC MELISSA. * true * Date: Generated for Uvaldo diaz/Paradise/eTjuliánsmitting on: 12/06/2024 10:23 AM PATIENT RELATIONS LIAISON
[2025-10-06 10:19] VITALS: BP 137/90; PULSE 98; RESP 18; TEMP 36.3; O2SAT 100; BMI 32.1
--- OUTSIDE RECORDS SUMMARY | 2025-10-06 10:24 | XMS_ITS | Clinical Summary ---
Author Organization [facility] Address [address] [facility] [address] [place] [address] Phone Care Team Providers Care Hot Strip Finisher Name Role Phone Unavailable Primary Care Provider Unavailabl e Allergies No known active allergies Encounters Date Type Department Care Team Description 08/14/2025 External Device Data [facility] ABSTRACTION Provider, Abstract 08/07/2025 External Device Data [facility] ABSTRACTION Provider, Abstract from Last 3 Months Social History Tobacco [...] Flex Sig/CT Colonography Q 5 years 2005 RSV VACCINE (60+ or ) (1 - Risk 50-74 years 1-dose series) 2010 ZOSTER VACCINE (1 of 2) 2010 INFLUENZA VACCINE (#1) 2025 Insurance [place]ICAID [place]
--- OUTSIDE RECORDS SUMMARY | 2025-10-06 10:24 | XMS_ITS | Patient Health Record ---
Author Organization [facility] Address [address] [facility] [place] [address] Care Team Providers Care Community Product Specialist Name Role Phone BairdEaston Primary Care Provider Allergies No Known Allergies Results Component Value Reference Range Flag Notes CBC w\ Auto Diff [id number] Reviewed date:03/15/2025 12:45:13 PM Interpretation: Performing Lab: [...] HI Lymph Auto% 8.9 22.0-44.0 % LOW [place] Auto% 11.9 3.0-7.0 % HI Eos Auto% 3.1 2.0-4.0 % Baso Auto% 1.0 0.0-1.0 % Imm Gran% .3 .0-.4 % Neutro Abs 2.19 .80-7.70 Absolute Neutrophil Count 2190 NA Lymph Abs .26 .10-4.10 [place] Abs .35 .20-1.00 Eos Abs .09 .00-.40 Baso Abs .03 .00-.20 Imm Gran Abs .01 .00-.10 NRBC# .00 .00-.20 NRBC% .00 .00-.20 /100 intact WBC's Comprehensive Metabolic Pane l (CMP) 32925 Reviewed date:03/15/2025 12:45:21 PM Interpretation: Performing Lab: Notes/Report: Diagnosis Description: Other ascites Glucose Serum 94 71-110 MG/DL Testing p erformed at [facility], [address] [place] [address] [place] [address]. CLIA ID#: [id number] BUN 32 7-21 MG/DL HI Creat 1.82 .57-1.17 MG/DL HI Use of this assay is not recommended for patients undergoing treatment with phenindione, due to the potential for falsely depressed results. W-hmlzpb-r-benzoquinon e imine (NAPQI) is a metabolite of acetaminophen, NAPQI concentrations of apparoximately 10 mg/L correlation to toxic levels of acetaminophen demonstrates a greater than or equil to 10% change in results. NAPQI concentrations greater than this may lead to falsely depressed results for patient samples. GFR 40.8 NA Calculation pe rformed from [...] 12-78 UNIT/L Osmo Serum,Calculated 299 280-300 MOSM/KG % Iron Saturation (Fe & TIBC )--65301,16518 Reviewed date:03/15/2025 12:45:05 PM Interpretation: Performing Lab: Notes/Report: Diagnosis Description: Other ascites Iron 66 65-175 MCG/DL Per Iron as say instruction for Use(IFU), patients treated with metal-binding drugs (e.g.deferoxamine) may have depressed iron values as chelated iron may not properly react in the iron assay. Testing was performed with this assay method. TIBC 290 250-450 NG/DL % Iron Saturation 23 20-50 % US Venous Doppler Scan LE Le ft-04524 Reviewed date:05/17/2025 01:01:42 PM Interpretation: Performing Lab: Notes/Report: [id number]=iSite CT Abdomen, Pelvis w/ Contra st-[id number] Reviewed date:06/18/2025 02:59:56 PM Interpretation: Performing Lab: Notes/Report: Elbow Ap/Lat Right-93458 Reviewed date:08/14/2025 02:28:46 PM Interpretation: Performing Lab: Notes/Report: [id number]=iSite Hip 2 View Bilat-58676 (Not yet reviewed by provider) Interpretation: Performing Lab: Notes/Report: [id number]=iSite Paracentesis Reviewed date:10/17/2024 10:40:42 AM Interpretation: Performing Lab: Notes/Report: US Venous Doppler Scan LE Le ft-[id number] Reviewed date:05/17/2025 01:10:08 PM Interpretation: Performing Lab: Notes/Report: See Below For Report US Venous Doppler Scan LE Left Read See Below For Report Elbow Ap/Lat Right-95233 (No t yet reviewed by provider) Interpretation: Performing Lab: Notes/Report: See Below For Report Elbow Ap/Lat Right Read See Below For Report Hip 2 View Bilat-61448 (Not yet reviewed by provider) Interpretation: Performing Lab: Notes/Report: See Below For Report Hip 2 View Bilat Read See Below For Report Reason For Referral Reason meralgia paresthetic a Diagnosis 1 Meralgia paresthetic a, left lower limb (G57.12) Referral Organization [facility] Referring Provider First Name Cem mills Referring Provider Last Name Brie Referring Provider Speciality Internal M edicine Referred Provider [facility] Referred Provider Specialty Physical The rapist General Notes Sahra Marquez 04:11:36 PM >faxed GTS Bee locationPrem Heidi 04/12/2025 09:28:06 AM >GTS IS OON AND HE WOULD LIKE [place] [facility] [place] Sahra Marquez 04/12/2025 11:28:33 AM >[facility] [facility] [place] 04/19/2025 10:45:42 AM >PER RACHAEL THEY HAVE IT BUT STILL PROCESSING, Yanet Amaro 05/02/2025 02:10:28 PM >PER RACHAEL IT IS STILL PENDING WITH INSURANCE, Yanet Amaro 05/16/2025 10:25:53 AM >PER STANTON THEY DO HAVE IT, PT HAS NOT BEEN CALLED YET. I CALLED PT AND GAVE HIM THE NUMBER TO CALL AND SCHEDULE AND HE WILL SOMETIME TODAY AND HE WILL CALL AND LET US KNOW APPT TIME AND DATE, Yanet Amaro 05/17/2025 11:22:32 AM >CARMEN CALLED AND SAID [...] Duration) Notes Start Date End Date Status Naprosyn 500 MG Tablet 1 tablet Orally twice a day As needed for pain 08/01/2025 Active Furosemide 80 mg Tablet TAKE 1 TABLET BY MOUTH EVERY DAY; Duration: 30 Active Methocarbamol 750 MG Tablet 1 tablet Orally every 6 hours As needed for spasms 08/01/2025 Active Zonisamide 100 mg Capsule TAKE FOUR CAPS ULES BY MOUTH EVERY DAY; Duration: 30 Active Oxygen - Home Use 2 L NC PRN A ctive Aspirin Low Dose 81 mg Tablet Delayed Release TAKE 1 TABLET BY MOUTH ONCE DAILY; Duration: 90 Active Acetaminophen 325 MG Tablet 1 tablet as needed Orally every 4 hrs Active Metoprolol Tartrate 25 mg Tablet TAKE ONE TABLET BY MOUTH TWICE DAILY; Duration: 90 Active Isosorbide Mononitrate ER 60 mg Tablet Extended Release 24 Hour TAKE ONE TABLET BY MOUTH EVERY DAY; Duration: 90 Active Lisinopril 40 mg Tablet TAKE 1 TABLET BY MOUTH EVERY DAY; Duration: 90 Active Potassium Chloride ER 20 MEQ Tablet Extended Release 1/2 tablet with food Orally Twice a day Not-Taking Fenofibrate Micronized 134 mg Capsule TAKE 1 CAPSULE BY MOUTH EVERY DAY; Duration: 90 Active Gabapentin 300 MG Capsule 1 capsule as n eeded Orally Three a day Active Potassium Chloride Wanda ER 20 mEq Tablet Extended Release TWICE DAILY; DISSOLVE 1/2 TABLET in 4 OUNCE of liquid and drink with fluid pill; TABLET WITH FOOD; Duration: 30 Active Lyrica 150 MG Capsule 1 capsule Orally O nce a day; Duration: 30 days 06/29/2025 10/26/2025 Active Spironolactone 100 mg Tablet TAKE 1 TABLET BY MOUTH EVERY DAY; Duration: 30 Active Combivent Respimat 20-100 MCG/ACT Aerosol Solution inhale 1 PUFF into THE lungs EVERY 6 HOURS; Duration: 30 Active Levothyroxine Sodium 50 mcg Tablet TAKE 1 TABLET BY MOUTH ONCE DAILY; Duration: 30 Active Allopurinol 100 mg Tablet TAKE ONE TABLE T BY MOUTH EVERY DAY; Duration: 30 Active Bumetanide 1 MG Tablet 1 tablet Orally O nce a day; Duration: 30 days Not-Taking Immunizations Vaccine Route Administration Date Status Comme [...] staying asleep, or sleeping t oo much Nearly every day Feeling tired or having little energy Several da ys Poor appetite or overeating Not at all Feeling bad about yourself, or that you [...] some way Not at all Total Score 4 Interpretation Minimal Depression Drugs/Alcohol: Social Info Question Answer Notes Drugs Have you used drugs other than those for medical reasons in the past 12 months? No Comprehensive Health Assessm ent Social Info Question Answer Notes *Social Determinants of Health Has lack of transportation kept you from medical appointments, meetings, work or from getting things needed for daily living? No Recently, have you worried t hat your food would run out before you got money to buy more? No Do you feel physically and emotionally safe wher e you currently live? Yes Are you worried about losing your housing? No Have you recently been lori rned that your utilities would be turned off (electricity, gas, or water)? No Drug/Alcohol: Social Info Question Answer Notes AUDIT-C (Standard) Did you have a drink containing alcohol in the past year? No Points 0 Interpretation Negative Tobacco Use: Social Info Question Answer Notes Tobacco Control (Standard) Tobacco use: Former smoker How long has it been since you last smoked? Greater than 10 years Additional Findings: Tobacco user Chews tobacco Section Notes: CIME - Dep/tob - 02/20/25 CIME - Dep/tob - 02/20/25 CIME - Dep/tob - 02/20/25 CIME - Dep/tob - 02/20/25 CIME - Dep/tob - 02/20/25 Dep & Tob - 08/29/24 CIME - Dep/tob - 02/20/25 CIME - Dep/tob - 02/20/25 CIME - Dep/tob - 02/20/25 CIME - Dep/tob - 02/20/25 Problems Problem Type SNOMED Code ICD Code Onset Dates Problem Status W/U Status Risk Notes Problem Meralgia paresthetica (59960347) Meralgia paresthetica, left lower limb (G57.12) Active confirmed Problem Ascites (957415148) Other ascites (R18.8) Active confirmed Problem Arthralgia of the ankle and/or foot (620832718) Acute right ankle pain (M25.571) Active confirmed Problem Arthralgia of the pelvic region and thigh (333128601) Right hip pain (M25.551) Active confirmed Problem Anasarca (67229734) Anasarca (R60.1) Active confirmed Problem Left anterior knee pain (M25.562) Active confirmed Problem Chronic atrial fibrillation (disorder) (744731565) Chronic a-fib (I48.20) Active confirmed Problem Wound cellulitis (559501271) Wound cellulitis (L03.90) Active confirmed Problem Edema (692000685) Unilateral edema of lower extremity (R60.0) Active confirmed Problem Idiopathic cirrhosis (77528920) Idiopathic cirrhosis (K74.60) Active confirmed Problem Low back pain (finding) (840403278) Lumbar back pain (M54.50) Active confirmed Vital Signs Heart Rate 99 /min 09/27/2025 Temperature 97.8 degrees Fahrenheit 09/27/2025 Blood pressure diastolic 68 mm Hg 09/27/2025 Oximetry 99 % 09/27/2025 Height-cm 167.64 cm 09/27/2025 Weight-kg 80.29 kg 09/27/2025 Height 66 in 09/27/2025 Blood pressure systolic 112 mm Hg 09/27/2025 Weight 177 lbs 09/27/2025 BMI 28.57 kg/m2 09/27/2025 Encounters Encounter Location Date Provider Diagnosis [facility] [address] [place] [phone] 09/27/2025 Easton Baird Immunization not carried out because of patient refusal Z28.21 ; Right hip pain M25.551 and Idiopathic cirrhosis K74.60 [facility] [address] [place] [phone] 09/05/2025 Easton Baird Adult general medical exam Z00.00 ; Chronic a-fib I48.20 ; Idiopathic cirrhosis K74.60 and Depression screen Z13.31 [facility] [address] [address] 05/07/2025 Christopher Baird Other ascites R18.8 ; Idiopathic cirrhosis K74.60 ; Meralgia paresthetica, left lower limb G57.12 and Depression screen Z13.31 [facility] [address] [place] [phone] 02/20/2025 Christopher Baird Other ascites R18.8 ; Idiopathic cirrhosis K74.60 ; Left anterior knee pain M25.562 ; Edema R60.9 and Depression screen Z13.31 [facility] [address] [place] [address] 10/11/2024 Christopher Baird Other ascites R18.8 [facility] [address] [place] [phone] 08/01/2025 Christopher Baird Meralgia paresthetica, left lower limb G57.12 ; Idiopathic cirrhosis K74.60 and Lumbar back pain M54.50 [facility] [address] [place] [phone] 05/22/2025 Kikoopher Baird Right flank pain R10.9 ; Idiopathic cirrhosis K74.60 and Meralgia paresthetica, left lower limb G57.12 [facility] [address] [place] [phone] 04/25/2025 Kikoopher Baird Unilateral edema of lower extremity R60.0 ; Other ascites R18.8 ; Depression screen Z13.31 ; Encounter for immunization Z23 and Immunization not carried out because of patient refusal Z28.21 [facility] [address] [place] [phone] 04/02/2025 Christopher Baird Idiopathic cirrhosis K74.60 ; Meralgia paresthetica, left lower limb G57.12 ; Depression screen Z13.31 ; Encounter for immunization Z23 and Immunization not carried out because of patient refusal Z28.21 [facility] [address] [place] [phone] 12/20/2024 Christopher Baird Other ascites R18.8 ; Anasarca R60.1 ; Idiopathic cirrhosis K74.60 and Depression screen Z13.31 [facility] [address] [place] [address] 08/13/2025 Easton Baird Traumatic ecchymosis of right upper arm, initial encounter S40.021A [facility] [address] [place] [address] 03/22/2025 Easton Baird [facility] [address] [place] [address] 02/27/2025 Easton Baird [facility] [address] [place] [address] 10/11/2024 Easton Baird Other ascites R18.8 [facility] [address] [place] [address] 10/04/2025 Easton Baird Encounter for immunization Z23 and Immunization not carried out because of patient refusal Z28.21 [facility] [address] [place] [address] 10/04/2025 Easton Baird [facility] [address] [place] [address] 06/28/2025 Easton Baird Meralgia paresthetica, left lower limb G57.12 [facility] [address] [place] [address] 06/06/2025 Easton Baird [facility] [address] [place] [address] 05/30/2025 Easton Baird Assessments Encounter Date Diagnosis (ICD Code) Assessment Notes Treatment Notes Treatment Clinical Notes Section Notes 10/11/2024 Other ascites (ICD-10 - R18.8) 10/11/2024 Other ascites (ICD-10 - R18.8) 12/20/2024 Other ascites (ICD-10 - R18.8) 02/20/2025 Other ascites (ICD-10 - R18.8) 02/20/2025 Idiopathic cirrhosis (ICD-10 - K74.60) 04/02/2025 Meralgia paresthetica, left lower limb (ICD-10 - G57.12) 04/02/2025 Idiopathic cirrhosis (ICD-10 - K74.60) 04/25/2025 Unilateral edema of lower extremity (ICD-10 - R60.0) 05/07/2025 Other ascites (ICD-10 - R18.8) Doing well. 05/22/2025 Right flank pain (ICD-10 - R10.9) 06/28/2025 Meralgia paresthetica, left lower limb (ICD-10 - G57.12) 08/01/2025 Meralgia paresthetica, left lower limb (ICD-10 - G57.12) All patient's questions are encouraged and addressed to their apparent satisfaction. They are agreeable with the proposed plan of care and deny further needs or concerns. Patient is advised to take medications as prescribed. Patient agrees to contact the clinic with any new, worsening or increase of symptons. I am happy to see patient prior to next office visit as needed for acute concerns. 08/01/2025 Idiopathic cirrhosis (ICD-10 - K74.60) 08/13/2025 Traumatic ecchymosis of right upper arm, initial encounter (ICD-10 - S40.021A) 09/05/2025 Adult general medical exam (ICD-10 - Z00.00) 09/27/2025 Immunization not carried out because of patient refusal (ICD-10 - Z28.21) 09/27/2025 Right hip pain (ICD-10 - M25.551) 10/04/2025 Encounter for immunization (ICD-10 - Z23) 10/04/2025 Immunization not carried out because of patient refusal (ICD-10 - Z28.21) 09/27/2025 Idiopathic cirrhosis (ICD-10 - K74.60) 09/05/2025 Chronic a-fib (ICD-10 - I48.20) 08/01/2025 Lumbar back pain (ICD-10 - M54.50) 05/22/2025 Idiopathic cirrhosis (ICD-10 - K74.60) 05/07/2025 Idiopathic cirrhosis (ICD-10 - K74.60) Stable 04/25/2025 Other ascites (ICD-10 - R18.8) Doing really well. 02/20/2025 Left anterior knee pain (ICD-10 - M25.562) 04/02/2025 Depression screen (ICD-10 - Z13.31) 12/20/2024 Anasarca (ICD-10 - R60.1) 12/20/2024 Idiopathic cirrhosis (ICD-10 - K74.60) 02/20/2025 Edema (ICD-10 - R60.9) 04/02/2025 Encounter for immunization (ICD-10 - Z23) 05/07/2025 Meralgia paresthetica, left lower limb (ICD-10 - G57.12) 05/22/2025 Meralgia paresthetica, left lower limb (ICD-10 - G57.12) 09/05/2025 Idiopathic cirrhosis (ICD-10 - K74.60) his ascites is decent. 04/25/2025 Depression screen (ICD-10 - Z13.31) 09/05/2025 Depression screen (ICD-10 - Z13.31) 05/07/2025 Depression screen (ICD-10 - Z13.31) 04/25/2025 Encounter for immunization (ICD-10 - Z23) 04/02/2025 Immunization not carried out because of patient refusal (ICD-10 - Z28.21) 02/20/2025 Depression screen (ICD-10 - Z13.31) 12/20/2024 Depression screen (ICD-10 - Z13.31) 04/25/2025 Immunization not carried out because of patient refusal (ICD-10 - Z28.21) 10/11/2024 Other see scanned document from [facility] in patients documents. 02/20/2025 Other Venipuncture performed by Sahra Marquez. Right arm/hand. One attempt. Pt tolerated well, bleeding controlled with light dressing. Lab sent to [facility] via pharmacovigilance safety expert. 09/05/2025 Other Return in one year for your annual wellness visit. Plan Of Treatment Pending Test Test Name Order Date Elbow Ap/Lat Right-23138 08/13/2025 Hip 2 View Bilat-24196 09/27/2025 Hip 2 View Bilat-23598 09/27/2025 Next Appt Details Provider Name:Easton Baird, 10/11/2025 03:00:00 PM, [address], [place], [address], Provider Name:Easton Baird, 01/02/2026 01:00:00 PM, [address], [place], [address], Insurance Providers Payer Name Payer Address Payer Phone Subscriber Number Group Number Insured Name Patient Relationship to Insured Coverage Start Date Coverage End Date [place] Medicaid [address] [place] [address] [id number] CARMEN BROWN Self - patient is the insured Medications Administered Medication Instructions Date of Administration Dosage Notes Furosemide 40mg 10/03/2024 Rocephin 08/29/2024 1 g Medical (General) History Medical History History ICD Code Heart attack hypertension hernia Surgical History Surgery Date(Month/Year) cataract removal 2016 Stents x 3
--- NOTE | 2025-10-06 11:02 | CTR_ITS ---
PROCEDURE INFORMATION: Exam: CT Lumbar Spine Without Contrast Exam date and time: 10/06/2025 11:17 AM Age: 64 years old Clinical indication: Injury or trauma; Fall; Blunt trauma (contusions or hematomas); Additional info: Worsening R hip and posterior R low back pain S/P fall TECHNIQUE: Imaging protocol: Computed tomography of the lumbar spine without contrast. Radiation optimization: All CT scans at this facility use at least one of these dose optimization techniques: automated exposure control; mA and/or kV adjustment per patient size (includes targeted exams where dose is matched to clinical indication); or iterative reconstruction. COMPARISON: CT kidney stone [id number] 07/29/2025 2:02 PM RADIATION DOSE METRICS: Total DLP (mGy-cm): 597.1 FINDINGS: Bones/joints: Examination of the coronal reformatted images demonstrates an S shaped scoliotic curvature. Examination of the sagittal reformatted images demonstrates trace retrolisthesis of L1 in relation to L2, L2 in relation to L3, L3 in relation to L4 and L4 in relation to L5. No definite acute appearing compression fractures are noted. There is disc space narrowing at T12-L1, L1-L2, L2-L3, and L4-L5. There are degenerative changes involving the facets at multiple levels. No definite acute fractures are noted on the axial images. T12-L1: There are degenerative changes involving the facets. The spinal canal and foramina are patent. L1-L2: There is disc osteophyte complex posteriorly most pronounced in the left paracentral region. Facets are normal. There is mild resultant canal narrowing with xpuw-dg-knjjyyha left foraminal narrowing. The right neural foramina is widely patent. L2-L3: There is diffuse disc bulging. There are degenerative changes involving the facets. There is a moderate resultant canal stenosis with moderate bilateral foraminal stenosis. L3-L4: There is disc osteophyte complex posteriorly. There are degenerative changes involving the facets. There is dzmp-sm-gcfxdaqi resultant canal narrowing with mild right foraminal narrowing. The left neural foramina is widely patent. L4-L5: There is disc osteophyte complex posteriorly. There are degenerative changes involving the facets. There is awar-fx-fpoueiqw resultant canal narrowing with moderate right and mild left foraminal narrowing. L5-S1: There are degenerative changes involving the facets. The spinal canal is widely patent. There is moderate bilateral foraminal narrowing. Soft tissues: Unremarkable. CT/CT lumbar spine wo con* [id number] IMPRESSION: No acute lumbar spine fracture.
--- NOTE | 2025-10-06 11:02 | CTR_ITS ---
PROCEDURE INFORMATION: Exam: CT Right Lower Extremity Without Contrast, Hip Exam date and time: 10/06/2025 11:17 AM Age: 64 years old Clinical indication: Injury or trauma; Fall; Blunt trauma; Hip; Right; Additional info: Worsening R hip pain S/P fall, R/O occult FX TECHNIQUE: Imaging protocol: CT of the right lower extremity without contrast was performed. Exam focused on the hip. Radiation optimization: All CT scans at this facility use at least one of these dose optimization techniques: automated exposure control; mA and/or kV adjustment per patient size (includes targeted exams where dose is matched to clinical indication); or iterative reconstruction. COMPARISON: CT kidney stone [id number] 07/29/2025 2:02 PM RADIATION DOSE METRICS: Total DLP (mGy-cm): 249 FINDINGS: Bones/joints: No acute appearing fracture noted involving the included portion of the right hemipelvis or proximal right femur. There is mild joint space narrowing involving the right hip with small acetabular osteophytes. Bony mineralization is normal. Soft tissues: No acute appearing soft tissue abnormality is appreciated. CT/CT hip RT wo con* [id number] IMPRESSION: 1. No definite fracture identified.
[2025-10-06 11:10] VITALS: RESP 18
[2025-10-06] MEDS: oxyCODONE-APAP 5-325 mg Tablet 1 TAB PO (11:10)
--- NOTE | 2025-10-06 11:11 | PC.NURSE ---
Pt refused IM injection of Toradol. Pt states, I don't like needles. Pt educated on Medication and benefits. Provider notified.
--- NOTE | 2025-10-06 11:49 | W.ED.BACK ---
HPI - Back Pain/Injury General: Chief Complaint: Back Pain/Injury Stated Complaint: R hip Pain going down R leg Time Seen by Provider: 10/06/25 10:27 History of Present Illness: 64-year-old male history of CAD with multiple stents, chronic A-fib, presenting emergency department with a 1 month history of predominantly right hip pain rating down the right leg as well as mild low back pain, reports that it started after he was being evaluated by a physician that lowered the stretcher abruptly causing him to lean backwards, he did not have immediate onset of pain but reports that it started within a few hours and thinks that that may be the cause. He reports that he was seen by a different provider who did x-rays of the hip and said everything was okay but does not believe it. He denies any weakness numbness or tingling to the legs, he is able to ambulate with a cane, he denies any incontinence of urine or stool Related Data Home Medications ?Medication ?Instructions ?Recorded ?Confirmed aspirin 81 mg tablet,delayed 81 mg PO DAILY 01/22/20 09/03/25 release (Aspir-) fenofibrate micronized 134 mg 134 mg PO DAILY 01/22/20 09/03/25 capsule levothyroxine 25 mcg capsule 25 mcg PO DAILY 01/22/20 09/03/25 gabapentin 100 mg capsule 100 mg PO TID PRN 07/18/24 09/03/25 potassium chloride 10 mEq oral 10 meq PO DAILY 07/18/24 09/03/25 packet isosorbide mononitrate 10 mg tablet 10 mg PO BID 08/30/24 09/03/25 bumetanide 1 mg tablet 1 mg PO DAILY 03/06/25 09/03/25 furosemide 80 mg tablet 80 mg PO DAILY 03/06/25 09/03/25 apixaban 5 mg tablet (Eliquis) 5 mg PO BID 09/03/25 09/03/25 Previous Rx's ?Medication ?Instructions ?Recorded nitroglycerin 0.4 mg sublingual 0.4 mg sublingual Q5M PRN chest 07/24/20 tablet (Nitrostat) pain #60 tabs metoprolol tartrate 25 mg tablet 12.5 mg (1/2 x 25 mg) PO BID #60 09/03/25 tabs cyclobenzaprine 10 mg tablet 10 mg PO TID PRN muscle spasm #30 10/06/25 tabs oxycodone-acetaminophen 5 mg-325 1 tab PO Q6H PRN pain 3 days #12 10/06/25 mg tablet (Percocet) tabs Allergies Allergy/AdvReac Type Severity Reaction Status Date / Time No Known Allergies Allergy Verified 10/06/25 10:26 PFSH ED PFSH: Medical History Tobacco abuse Ascites Systolic CHF 01/26/2024: LVEF 40 to 45% Acute congestive heart failure HTN (hypertension) ASHD (arteriosclerotic heart disease) Myocardial infarction Dyslipidemia COPD (chronic obstructive pulmonary disease) Surgical History S/P angioplasty with stent Family History Mother Hypertension Other CAD (coronary artery disease) Social History Smoking and tobacco/nicotine status: former use of tobacco/nicotine Alcohol intake: former Household members: significant other Marital status: Life Partner service: No Current occupational status: disabled Physical Exam Narrative: EXAM NARRATIVE: Gen: A&Ox4, no acute distress, nontoxic appearing HEENT: Normocephalic, atraumatic, no scleral icterus, external ears normal, moist mucous membranes Neck: Supple, full range of motion, no observable masses Lungs: No Respiratory distress, Lungs clear to auscultation bilaterally no rales, rhonchi, wheezing CV: Regular rate and rhythm, no murmur, no pitting edema to lower extremities bilaterally Abdomen: Soft, nondistended, nontender to palpation MSK: No joint swelling, FROM all 4 extremities, tenderness palpation of the right hip posteriorly and laterally no obvious deformity, mild tenderness to the right paralumbar region no midline lumbar tenderness, able to ambulate without assistance with a cane Skin: No rashes, petechiae, lesions. Normal color per patient. Neuro: Alert and oriented, no slurred speech, sensation and strength grossly intact all 4 extremities, specifically sensation intact bilateral lower extremities all distributions, no saddle anesthesia Psych: Appropriate for situation. Course Reevaluation(s): Reevaluation #1: CTs no acute fracture, stable for discharge with pain control and PCP follow-up recommendation Time: 13:16 Vital Signs: Vital signs: Vital Signs Temperature 97.4 F L 10/06/25 10:19 Pulse Rate 98 10/06/25 10:19 Respiratory Rate 18 10/06/25 11:10 Blood Pressure 137/90 10/06/25 10:19 Pulse Oximetry 100 10/06/25 10:19 Oxygen Delivery Me thod Room Air 10/06/25 10:19 MDM - Back Pain/Injury Medical Decision Making 64-year-old male history of cardiac disease presenting the emergency department with a 1 month history of right hip pain rating down the right leg, no acute neurologic deficits, previous x-rays reportedly negative but not available for review, patient also has some minor low back pain which is right paralumbar location without midline tenderness to palpation, I have an overall very low concern for acute cord compression or acute spinal fracture however will obtain CT of the hip to assess for occult fracture of the hip or pubic rami, CT lumbar spine to assess for any degenerative disease that could help guide therapy, rule out compression fracture, reassess for disposition Labs Radiology Impressions Hip CT 10/06/25 11:02 IMPRESSION: 1. No definite fracture identified. Lumbar Spine CT 10/06/25 11:02 IMPRESSION: No acute lumbar spine fracture. All radiology interpretation(s) finalized by discharge ED provider radiology interpretation(s): CT lumbar spine no fracture, hip CT no fracture Discharge Plan Discharge Patient Disposition: Home Clinical Impression: Acute pain of right hip Condition: Stable Prescriptions: New oxycodone-acetaminophen [Percocet] 5-325 mg tablet 1 tab PO Q6H PRN (Reason: pain) 3 Days Qty: 12 0RF cyclobenzaprine 10 mg tablet 10 mg PO TID PRN (Reason: muscle spasm) Qty: 30 0RF No Action nitroglycerin [Nitrostat] 0.4 mg tablet, sublingual 0.4 mg SUBLINGUAL Q5M PRN (Reason: chest pain) Qty: 60 2RF fenofibrate micronized 134 mg capsule 134 mg PO DAILY levothyroxine 25 mcg capsule 25 mcg PO DAILY aspirin [Aspir-81] 81 mg tablet,delayed release (DR/EC) 81 mg PO DAILY gabapentin 100 mg capsule 100 mg PO TID PRN isosorbide mononitrate 10 mg tablet 10 mg PO BID Rx Instructions: give doses 7 hrs apart furosemide 80 mg tablet 80 mg PO DAILY bumetanide 1 mg tablet 1 mg PO DAILY potassium chloride 10 mEq packet 10 meq PO DAILY Eliquis 5 mg tablet 5 mg PO BID metoprolol tartrate 25 mg tablet 12.5 mg PO BID Qty: 60 1RF Discharge Orders: Discharge ED (Routine); Ordered 10/06/25 Ordered By: Ronaldo Garica Referrals: Neo Baird MD [Primary Care Provider, Internal Medicine] Patient Instructions: Opioid Safety, Pain Management, Patient Portal & Jesus Instructions, Chronic Back Pain (DC) Print Language: Italian Coding Level of Care Code ED Observatory Director for Eliza Riggs
== END 2025-10-06 13:36 | disposition home or self-care (01) ==
PROVIDERS: Emergency Provider Student in an Organized Health Care Education/Training Program; PCP Internal Medicine
DX: M25.551 Pain in right hip (principal); Z79.82 Long term (current) use of aspirin; Z79.01 Long term (current) use of anticoagulants; Z87.891 Personal history of nicotine dependence; E78.5 Hyperlipidemia, unspecified; J44.9 Chronic obstructive pulmonary disease, unspecified; I11.0 Hypertensive heart disease with heart failure; I50.20 Unspecified systolic (congestive) heart failure
CPT/HCPCS: 72131; 73700; 99284; J9999